=== PATIENT | female | born 1975 | race Caucasian/White ===

== ENCOUNTER 2016-12-21 11:43 | Inpatient (IN) | payer OTHER ==
[2016-12-21] MEDS ORDERED: SODIUM CHLORIDE 0.9% 1,000 ML IV ONE (12:21)
[2016-12-21] MEDS ORDERED: ONDANSETRON 4 MG/2 ML VIAL IVP STA (12:21)
[2016-12-21] MEDS ORDERED: KETOROLAC 30 MG/ML 1 ML VIAL IVP STA (12:21)
[2016-12-21] MEDS ORDERED: RX INFO: IV CONTRAST WAS GIVEN 1 EACH MISC MISCELLANE PRN (12:21)
[2016-12-21 12:59] LABS: Appearance,Urine Clear (Clear); Bilirubin,Urine Negative (Negative); Glucose,Urine (UA) Negative (Negative); Ketones,Urine 4+ (Negative); Leukocyte Esterase,Urine Negative (Negative); Mucus,Urine Rare /hpf; Nitrite,Urine Negative (Negative); PH, Urine 5.5 (5.0-8.0); Particle Count 4215; Protein,Urine 2+ (Negative); RBC,Urine 1 /hpf (0-5); Specific Gravity,Urine 1.023 (1.001-1.035); Squamous Epithelial Cell,Urine 3 /hpf (0-4); UA Billing (MACRO vs. MICRO) MICRO; Urobilinogen,Urine <2.0 mg/dL (<2.0); WBC,Urine <1 /hpf (0-5)
[2016-12-21 13:07] LABS: HCG,Qualitative Serum Not Detected
[2016-12-21 13:08] LABS: Basophils # (A) 0.1 k/uL (0-0.2); Basophils % (A) 0 %; CH 33.3; Eosinophils % (A) 0 %; HCT 40.7 % (34.0-46.0); HDW 3.66; HGB 15.5 gm/dL (11.4-16.0); Hyperchromasia Marked; Luc # (Auto) 0.07; Luc % (Auto) 0; Lymphocytes # (A) 0.7 k/uL (1.0-4.8); Lymphocytes % (A) 4 %; Mean Platelet Volume 6.9; Monocytes # (A) 0.5 k/uL (0-1.0); Monocytes % (A) 3 %; Neutrophils # (A) 15.1 k/uL (1.3-7.7); Neutrophils % (A) 92 %; Poikilocytosis Slight; RBC 4.85 m/uL (3.80-5.40); WBC 16.4 k/uL (3.8-10.6); WBC (Perox) 16.12
[2016-12-21 13:09] LABS: MCHC 38.1 g/dL (31.0-37.0)
[2016-12-21 13:11] LABS: ALT 26 U/L (9-52); AST 24 U/L (14-36); Alkaline Phosphatase 66 U/L (38-126); Anion Gap 18 mmol/L; Blood Urea Nitrogen 15 mg/dL (7-17); Calcium 9.6 mg/dL (8.4-10.2); Carbon Dioxide 22 mmol/L (22-30); Chloride 92 mmol/L (98-107); Glucose 122 mg/dL (74-99); Non-African American GFR(MDRD) >60 (>60 ml/min/1.73 sqM); Potassium 3.4 mmol/L (3.5-5.1); Sodium 132 mmol/L (137-145); Total Protein 7.9 g/dL (6.3-8.2)
[2016-12-21 13:19] LABS: Manual Review Performed
[2016-12-21 13:22] LABS: Spherocytes Present
--- NOTE | 2016-12-21 13:22 | CT ---
EXAMINATION TYPE: CT abdomen pelvis w con DATE OF EXAM: 12/21/2016 1:11 PM COMPARISON: NONE HISTORY: Nausea and vomiting CT DLP: 369.8 mGycm Automated exposure control for dose reduction was used. TECHNIQUE: Helical acquisition of images was performed from the lung bases through the pelvis. CONTRAST: Performed without Oral Contrast and with IV Contrast, patient injected with 100 mL of Omnipaque 300. FINDINGS: Lung bases are clear. There is no pleural effusion. Heart size is normal. Spleen is top normal in size. Liver appears normal. Bile ducts are not dilated. Gallbladder appears n ormal. There is no sign of pancreatic mass. The stomach is large and filled with fluid. There is no adrenal mass. Kidneys show satisfactory contrast opacification. There is no hydronephrosi s. There is no retroperitoneal adenopathy. There is no ascites. There is a 4 x 2 cm pleural-based cys t on the anterior right lower chest wall. I see no intestinal wall thickening. There are no dilated loops. There is no free fluid in the pelvis . There is no sign of a pelvic mass. Bladder is almost empty. Uterus is retroverted. Appendix is not seen. There is no sign of appendicitis. I see no bony destructive process. Lumbar spine is intact. IMPRESSION: THERE IS A THIN-WALLED PLEURAL-BASED CYST ON THE ANTERIOR LOWER RIGHT CHEST WALL OF UNCERTAIN SIGNIFI CANCE. THE STOMACH IS LARGE AND FULL OF FLUID that COULD RELATE TO GASTROPARESIS OR PARTIAL GASTRIC OUTLET O BSTRUCTION.
[2016-12-21] MEDS ORDERED: METOCLOPRAMIDE 5 MG/ML 2 ML VIAL IVP STA (15:07)
[2016-12-21] MEDS ORDERED: diphenhydrAMINE 50 MG/ML 1 ML VIAL IVP STA (15:07)
[2016-12-21] MEDS ORDERED: MORPHINE SULFATE 4 MG/ML SYRINGE IV PRN (15:08)
[2016-12-21] MEDS ORDERED: KETOROLAC 30 MG/ML 1 ML VIAL IVP PRN (15:08)
[2016-12-21] MEDS ORDERED: NALOXONE 0.4 MG/ML 1 ML VIAL IV PRN (15:08)
--- NOTE | 2016-12-21 15:11 | ED ---
General Adult HPI - General Chief complaint: Nausea/Vomiting/Diarrhea Stated complaint: vomiting Time Seen by Provider: 12/21/16 12:04 Source: patient Mode of arrival: wheelchair Limitations: no limitations - History of Present Illness Initial comments: 41-year-old female presenting for evaluation of nausea and vomiting since Thursday. She states this was not preceded by any other symptoms but has progressively developed a very umbilical abdominal pain during this time as well. There is no radiation of this pain she describes it as a cramping pressure. She has no other sick contacts in the home and has not taken any medications for improvement. There seems to be no exacerbating factors and she is unable to tolerate any by mouth intake. She does have a history of tubal ligation but admits she still has her gallbladder and her appendix. There is no associated dysuria or diarrhea. She denies any associated chest pain or shortness of breath. - Related Data Home Medications Medication Instructions Recorded Confirmed No Known Home Medications [No 12/21/16 12/21/16 Known Home Medications] Allergies Allergy/AdvReac Type Severity Reaction Status Date / Time acetaminophen Allergy Itching Verified 12/21/16 13:09 [From Tylenol-Codeine #3] codeine Allergy Itching Verified 12/21/16 13:09 [From Tylenol-Codeine #3] Review of Systems ROS Statement: Those systems with pertinent positive or pertinent negative responses have been documented in the HPI. ROS Other: All systems not noted in ROS Statement are negative. Constitutional: Reports: chills. Denies: fever, weakness, weight change Eyes: Denies: eye pain, eye discharge ENT: Denies: ear pain, throat pain, dental pain, hearing loss Respiratory: Denies: cough, dyspnea, wheezes, hemoptysis, stridor Cardiovascular: Denies: chest pain, palpitations, dyspnea on exertion, orthopnea , edema Endocrine: Reports: fatigue. Denies: polydipsia, polyuria Gastrointestinal: Reports: abdominal pain, nausea, vomiting. Denies: diarrhea, constipation, hematemesis, melena, hematochezia Genitourinary: Denies: urgency, dysuria, frequency, hematuria, discharge Musculoskeletal: Reports: myalgia. Denies: back pain Skin: Denies: rash, lesions Neurological: Denies: headache, weakness Psychiatric: Denies: anxiety, depression Hematological/Lymphatic: Denies: easy bleeding, easy bruising Past Medical History Past Medical History: No Reported History History of Any Multi-Drug Resistant Organisms: None Reported Past Surgical History: Tubal Ligation Past Psychological History: No Psychological Hx Reported Smoking Status: Current every day smoker Past Alcohol Use History: None Reported Past Drug Use History: None Reported - Past Family History Mother Family Medical History: Coronary Artery Disease (CAD), Thyroid Disorder General Exam Limitations: no limitations General appearance: alert, in distress Head exam: Present: atraumatic Eye exam: Present: normal appearance, PERRL, EOMI. Absent: scleral icterus, conjunctival injection, periorbital swelling ENT exam: Present: normal exam, mucous membranes moist Neck exam: Present: normal inspection. Absent: tenderness, meningismus, lymphadenopathy Respiratory exam: Present: normal lung sounds bilaterally. Absent: respiratory distress, wheezes, rales, rhonchi, stridor Cardiovascular Exam: Present: regular rate, normal rhythm, normal heart sounds. Absent: systolic murmur, diastolic murmur, rubs, gallop, clicks GI/Abdominal exam: Present: soft, tenderness. Absent: distended, guarding, rebound, rigid Rectal exam: Present: deferred Extremities exam: Present: normal inspection, full ROM, normal capillary refill. Absent: tenderness, pedal edema, joint swelling, calf tenderness Back exam: Present: normal inspection, full ROM Neurological exam: Present: alert, oriented X3, CN II-XII intact. Absent: altered Psychiatric exam: Present: normal affect, normal mood Skin exam: Present: warm, dry, intact, normal color. Absent: rash Course Vital Signs 12/21/16 12/21/16 12/21/16 11:47 14:49 15:49 Temperature 97.8 F 97.8 F 98.2 F Pulse Rate 67 60 Pulse Rate [ 60 Right Brachial] Respiratory 20 16 18 Rate Blood Pressure 112/65 109/60 Blood Pressure 107/62 [Right Arm] O2 Sat by Pulse 98 97 97 Oximetry EKG Findings - EKG Comments: EKG Findings:: Sinus bradycardia with sinus arrhythmia and a ventricular rate of 58, ROHIT 138, QRS 78, QT/QTc 452/443. Medical Decision Making - Medical Decision Making 41-year-old female presented for evaluation of intractable nausea vomiting and abdominal pain since Thursday. She states the nausea and vomiting started initially and that she developed the abdominal pain which is periumbilical without radiation. She states there is no hematemesis but her emesis has become greenish and bile colored in nature. She denies any dysuria and further denies any diarrhea. On physical examination she does appear distressed and has mild tenderness to palpation in the periumbilical area but only minimal. Concern for appendicitis versus cholecystitis versus bowel obstruction versus gastroenteritis. We'll obtain labs, CT abdomen, and provide pain control And Zofran. Labs revealed a leukocytosis of 16.4 and there are multiple electrolyte abnormalities. Total bilirubin was also elevated. Urinalysis revealed moderate blood and ketones without UTI.CT abdomen and pelvis shows a thin- walled pleural-based cyst on the anterior lower right chest wall of uncertain significance. The stomach is large and full of fluid that could relate to gastroparesis or partial gastric outlet obstruction. Patient was reevaluated and had some improvement in her pain but continued to have nausea and vomiting. She is informed of these results and through shared decision making it was decided that she would be admitted for further evaluation. Primary team was called and accepted the admission with request for GI consult. Admission order placed, but her cosmetic. - Lab Data Result diagrams: 12/21/16 12:37 12/21/16 12:37 Lab Results 12/21/16 12/21/16 12/21/16 Range/Units 12:37 12:37 12:37 WBC (3.8-10.6) k/uL RBC (3.80-5.40) m/uL Hgb (11.4-16.0) gm/dL Hct (34.0-46.0) % MCV (80.0-100.0) fL MCH (25.0-35.0) pg MCHC (31.0-37.0) g/dL RDW (11.5-15.5) % Plt Count (150-450) k/uL Neutrophils % % Lymphocytes % % Monocytes % % Eosinophils % % Basophils % % Neutrophils # (1.3-7.7) k/uL Lymphocytes # (1.0-4.8) k/uL Monocytes # (0-1.0) k/uL Eosinophils # (0-0.7) k/uL Basophils # (0-0.2) k/uL Manual Slide Review Hyperchromasia Poikilocytosis Spherocytes Sodium 132 L (137-145) mmol/L Potassium 3.4 L (3.5-5.1) mmol/L Chloride 92 L (98-107) mmol/L Carbon Dioxide 22 (22-30) mmol/L Anion Gap 18 mmol/L BUN 15 (7-17) mg/dL Creatinine 0.50 L (0.52-1.04) mg/dL Est GFR (MDRD) Af Amer >60 (>60 ml/min/1.73 sqM) Est GFR (MDRD) Non-Af >60 (>60 ml/min/1.73 sqM) Glucose 122 H (74-99) mg/dL Plasma Lactic Acid Roberto (0.7-2.0) mmol/L Calcium 9.6 (8.4-10.2) mg/dL Total Bilirubin 3.0 H (0.2-1.3) mg/dL AST 24 (14-36) U/L ALT 26 (9-52) U/L Alkaline Phosphatase 66 (38-126) U/L Troponin I <0.012 (0.000-0.034) ng/mL Total Protein 7.9 (6.3-8.2) g/dL Albumin 4.8 (3.5-5.0) g/dL Lipase 26 (23-300) U/L HCG, Qual Not Detected Urine Color Yellow Urine Appearance Clear (Clear) Urine pH 5.5 (5.0-8.0) Ur Specific [place] 1.023 (1.001-1.035) Urine Protein 2+ H (Negative) Urine Glucose (UA) Negative (Negative) Urine Ketones 4+ H (Negative) Urine Blood Moderate H (Negative) Urine Nitrite Negative (Negative) Urine Bilirubin Negative (Negative) Urine Urobilinogen <2.0 (<2.0) mg/dL Ur Leukocyte Esterase Negative (Negative) Urine RBC 1 (0-5) /hpf Urine WBC <1 (0-5) /hpf Ur Squamous Epith Cells 3 (0-4) /hpf Urine Mucus Rare H (None) /hpf 12/21/16 12/21/16 Range/Units 12:37 12:37 WBC 16.4 H (3.8-10.6) k/uL RBC 4.85 (3.80-5.40) m/uL Hgb 15.5 (11.4-16.0) gm/dL Hct 40.7 (34.0-46.0) % MCV 84.0 (80.0-100.0) fL MCH 32.0 (25.0-35.0) pg MCHC 38.1 H (31.0-37.0) g/dL RDW 15.0 (11.5-15.5) % Plt Count 229 (150-450) k/uL Neutrophils % 92 % Lymphocytes % 4 % Monocytes % 3 % Eosinophils % 0 % Basophils % 0 % Neutrophils # 15.1 H (1.3-7.7) k/uL Lymphocytes # 0.7 L (1.0-4.8) k/uL Monocytes # 0.5 (0-1.0) k/uL Eosinophils # 0.0 (0-0.7) k/uL Basophils # 0.1 (0-0.2) k/uL Manual Slide Review Performed Hyperchromasia Marked Poikilocytosis Slight Spherocytes Present Sodium (137-145) mmol/L Potassium (3.5-5.1) mmol/L Chloride (98-107) mmol/L Carbon Dioxide (22-30) mmol/L Anion Gap mmol/L BUN (7-17) mg/dL Creatinine (0.52-1.04) mg/dL Est GFR (MDRD) Af Amer (>60 ml/min/1.73 sqM) Est GFR (MDRD) Non-Af (>60 ml/min/1.73 sqM) Glucose (74-99) mg/dL Plasma Lactic Acid Roberto 1.4 (0.7-2.0) mmol/L Calcium (8.4-10.2) mg/dL Total Bilirubin (0.2-1.3) mg/dL AST (14-36) U/L ALT (9-52) U/L Alkaline Phosphatase (38-126) U/L Troponin I (0.000-0.034) ng/mL Total Protein (6.3-8.2) g/dL Albumin (3.5-5.0) g/dL Lipase (23-300) U/L HCG, Qual Urine Color Urine Appearance (Clear) Urine pH (5.0-8.0) Ur Specific [place] (1.001-1.035) Urine Protein (Negative) Urine Glucose (UA) (Negative) Urine Ketones (Negative) Urine Blood (Negative) Urine Nitrite (Negative) Urine Bilirubin (Negative) Urine Urobilinogen (<2.0) mg/dL Ur Leukocyte Esterase (Negative) Urine RBC (0-5) /hpf Urine WBC (0-5) /hpf Ur Squamous Epith Cells (0-4) /hpf Urine Mucus (None) /hpf Disposition Clinical Impression: Intractable nausea and vomiting, Abdominal pain, Leukocytosis Disposition: ADMITTED IP TO THIS HOSP Referrals: None,Stated [Primary Care Provider] - 1-2 days Decision to Admit Reason: Admit from EC Decision Date: 12/21/16 Decision Time: 15:11
--- NOTE | 2016-12-21 15:18 | US ---
EXAMINATION TYPE: US abdomen limited DATE OF EXAM: 12/21/2016 3:09 PM COMPARISON: CT in pacs CLINICAL HISTORY: Pain. N/V x 2 days EXAM MEASUREMENTS: Liver Length: 16.5 cm Gallbladder Wall: 0.2 cm CBD: 0.4 cm Right Kidney: 11.5 x 4.1 x 4.6 cm Pancreas: visualized portions wnl, limited by overlying midline bowel gas Liver: wnl Gallbladder: wnl Evidence for sonographic Hidalgo's sign: no CBD: visualized portions wnl, limited by overlying bowel gas Right Kidney: wnl Scanned RUQ area of concern seen on CT: 5.6 x 2.1 x 4.5cm cystic area anterior/superior to liver IMPRESSION: No gallstones or dilated ducts. Oval-shaped simple cystic fluid collection that measures 5.6 x 2.1 cm could be loculated pleural fluid. This is seen above the liver adjacent to the chest eneida arias
[2016-12-21] MEDS: SODIUM CHLORIDE 0.9% 1,000 ML IV SCH (15:54)
[2016-12-21 16:03] VITALS: BMI 21.4
[2016-12-21] MEDS: ONDANSETRON 4 MG/2 ML VIAL IVP PRN (20:18)
[2016-12-22] MEDS: SODIUM CHLORIDE 0.9% 1,000 ML IV SCH ×2 (03:37→20:14)
[2016-12-22] MEDS: ONDANSETRON 4 MG/2 ML VIAL IVP PRN (06:49)
[2016-12-22 07:24] LABS: Basophils % (A) 0 %; CHCM 38.6; Eosinophils % (A) 0 %; HCT 34.1 % (34.0-46.0); HDW 3.51; HGB 12.7 gm/dL (11.4-16.0); Hyperchromasia Moderate; Luc # (Auto) 0.13; Luc % (Auto) 2; Lymphocytes # (A) 1.8 k/uL (1.0-4.8); Lymphocytes % (A) 22 %; MCH 32.1 pg (25.0-35.0); MCHC 37.3 g/dL (31.0-37.0); Mean Platelet Volume 6.3; Monocytes # (A) 0.4 k/uL (0-1.0); Monocytes % (A) 6 %; Neutrophils # (A) 5.6 k/uL (1.3-7.7); Neutrophils % (A) 70 %; Poikilocytosis Slight; RBC 3.97 m/uL (3.80-5.40); RDW 15.2 % (11.5-15.5); WBC (Perox) 8.62
[2016-12-22 07:25] LABS: ALT 22 U/L (9-52); AST 18 U/L (14-36); Alkaline Phosphatase 42 U/L (38-126); Anion Gap 8 mmol/L; Blood Urea Nitrogen 10 mg/dL (7-17); Carbon Dioxide 25 mmol/L (22-30); Chloride 102 mmol/L (98-107); Glucose 79 mg/dL (74-99); Magnesium 2.1 mg/dL (1.6-2.3); Non-African American GFR(MDRD) >60 (>60 ml/min/1.73 sqM); Potassium 3.2 mmol/L (3.5-5.1); Sodium 135 mmol/L (137-145); Total Bilirubin 2.8 mg/dL (0.2-1.3); Total Protein 5.7 g/dL (6.3-8.2)
[2016-12-22] MEDS ORDERED: POTASSIUM PHOSPHATE 10 MMOL in SODIUM CHLORIDE 0.9% 250 ML IV ONE (12:34)
[2016-12-22] MEDS: FAMOTIDINE 20 MG TAB PO SCH ×2 (14:12→21:01)
--- NOTE | 2016-12-22 22:15 | HP ---
DATE OF ADMISSION: 12/21/2016 CHIEF COMPLAINT: Nausea and vomiting. Ms. Arrieta is a 41-year-old female with no significant past medical history, came to the hospital with complaints of nausea, vomiting since last Thursday. The patient also complaining of abdominal pain and she came to the hospital, mainly in the umbilical area. No complaints of abdominal pain now. More of cramping-like pain. No aggravating or alieving factors. Patient denied any unusual food intake. No recent illness or sick contacts at home Patient otherwise denied any complaints of dysuria or hematuria. No diarrhea as well. Denied any chest pain or short of breath. Patient is being treated symptomatically for nausea, vomiting and gastroenterology has been consulted for further evaluation. CT of the abdomen and pelvis showed thin-walled pleural-based cyst in the anterior lower right chest wall of uncertain significance. Ultrasound of the abdomen was ordered. Patient also having stomach large and full of fluid and could be related to gastroparesis or partial gastric outlet obstruction. Patient is being scheduled for an EGD tomorrow. REVIEW OF SYSTEMS: CONSTITUTIONAL: No fever. No chills. RESPIRATORY: No cough or shortness of breath. CARDIOVASCULAR: No chest pain or shortness of breath. ABDOMEN: Patient does have nausea, vomiting and no diarrhea. No constipation. GENITOURINARY: No dysuria. No hematuria. ENDOCRINE: Negative. PSYCHIATRY: Negative. SKIN: Negative. All other 14 point review of systems negative except as above. PAST MEDICAL HISTORY: History of E. coli infection in the past. Otherwise no history of hypertension or diabetes mellitus. PAST SURGICAL HISTORY: Tubal ligation. PSYCHOSOCIAL HISTORY: None. SOCIAL HISTORY: Currently an everyday smoker; smokes about 1/2 pack per day. Occasional marijuana use. Denied any drugs or IVDU. FAMILY HISTORY: Mother has coronary artery disease and thyroid disorder. ALLERGIES: TYLENOL NO. 3 AND CODEINE. No home medications. PHYSICAL EXAMINATION: A 41-year-old female, lying in the bed comfortably. Awake, alert, oriented, x3 appears to be in no apparent distress. VITALS: Blood pressure is 112/65, pulse is 67, respirations 20, temperature afebrile, pulse ox 98% on room air. HEENT: Atraumatic, normocephalic. Neck is supple. No JVD. CVS: S1, S2 heard. No murmurs, no gallop, no rub. LUNGS: Bilateral air entry is present. Decreased breath sounds basally, nonlabored breathing. ABDOMEN: Soft, nontender. Bowel sounds are present. No organomegaly. EXTREMITIES: No edema. Pulses palpable bilaterally. No clubbing or cyanosis. 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 No focal neurologic deficits. Cranial nerves grossly intact. PSYCHIATRIC: Cooperative. LABORATORY DATA: WBC 16.4, hemoglobin 15.5, platelets 229. Sodium 132, potassium 3.4, chloride 92, BUN 15, creatinine 0.5. Blood sugar is 122, lactic acid 1.4, phosphorus 2.0, bilirubin is 3.0. UA negative for infection. Ultrasound of the abdomen showed no gallstones or dilated ducts. Oval shaped simple cystic fluid collection that measures 5.6. X 2.1 cm could be loculated pleural fluid which is seen above the liver adjacent to the chest wall. IMPRESSION: 1. Nausea, vomiting, abdominal pain most likely possible gastroparesis and gastric outlet obstruction. The patient is being treated symptomatically and EGD tomorrow. Gastroenterology has seen the patient. 2. Leukocytosis most likely reactive. 3. Hypovolemic hyponatremia due to poor oral intake and nausea and vomiting. 4. Hypokalemia. 5. Hypomagnesemia. 6. Elevated bilirubin level but no ductal abnormality noted in the ultrasound. 7. History of cigarette smoking and marijuana use. DISCUSSION AND PLAN: Patient will be continued on pain management with morphine and continue with the Pepcid. Antiemetics. Follow up closely. Continue with IV fluids. Further recommendations based on clinical course. Patient is scheduled for EGD tomorrow.
[2016-12-23 06:48] LABS: Basophils % (A) 0 %; CH 32.9; CHCM 37.8; Eosinophils % (A) 1 %; HCT 33.3 % (34.0-46.0); HDW 3.45; HGB 12.2 gm/dL (11.4-16.0); Hyperchromasia Moderate; Luc # (Auto) 0.07; Luc % (Auto) 1; Lymphocytes # (A) 1.4 k/uL (1.0-4.8); Lymphocytes % (A) 28 %; MCH 32.1 pg (25.0-35.0); MCHC 36.7 g/dL (31.0-37.0); MCV 87.4 fL (80.0-100.0); Mean Platelet Volume 6.4; Monocytes # (A) 0.3 k/uL (0-1.0); Monocytes % (A) 5 %; Neutrophils # (A) 3.2 k/uL (1.3-7.7); Neutrophils % (A) 65 %; Poikilocytosis Slight; RBC 3.81 m/uL (3.80-5.40); RDW 15.3 % (11.5-15.5); WBC (Perox) 5.16
[2016-12-23] MEDS: ONDANSETRON 4 MG/2 ML VIAL IVP PRN ×2 (07:01→14:00)
[2016-12-23 07:05] LABS: ALT 23 U/L (9-52); AST 15 U/L (14-36); Alkaline Phosphatase 40 U/L (38-126); Anion Gap 6 mmol/L; Blood Urea Nitrogen 6 mg/dL (7-17); Calcium 7.5 mg/dL (8.4-10.2); Carbon Dioxide 25 mmol/L (22-30); Chloride 106 mmol/L (98-107); Glucose 78 mg/dL (74-99); Non-African American GFR(MDRD) >60 (>60 ml/min/1.73 sqM); Potassium 3.1 mmol/L (3.5-5.1); Sodium 137 mmol/L (137-145); Total Bilirubin 1.8 mg/dL (0.2-1.3); Total Protein 5.1 g/dL (6.3-8.2)
[2016-12-23] MEDS ORDERED: PROPOFOL 10 MG/ML 20 ML VIAL IV ONE (07:35)
[2016-12-23] MEDS ORDERED: IV FLUID CONTINUATION 1,000 ML IV ONE (07:35)
--- NOTE | 2016-12-23 07:45 | P.PCN ---
Date of Procedure: 12/23/16 Procedure(s) Performed: BRIEF HISTORY: Patient is a 41-year-old, pleasant, 8 female, scheduled for an upper endoscopy as a part of evaluation of severe intense nausea, vomiting and some coffee-ground emesis that started on Thursday night. She had at least 10-12 episodes each day. She was admitted to the hospital 2 days ago and since then her symptoms are gradually improving. She had a CT of the abdomen and pelvis done that showed distended stomach with food suspicious for gastroparesis versus gastric outlet obstruction. She is hence scheduled for an upper endoscopy to evaluate further. PROCEDURE PERFORMED: Esophagogastroduodenoscopy and biopsy. PREOPERATIVE DIAGNOSIS: Severe nausea, vomiting and coffee-ground emesis. IV sedation per anesthesia. PROCEDURE: After informed consent was obtained, the patient was brought into the endoscopy unit. IV conscious sedation was administered by Anesthesia under continuous monitoring. Initially the Olympus GIF-140 video endoscope was inserted into the mouth. Esophagus intubated without any difficulty. It was gradually advanced into the stomach and duodenum and carefully examined. The bulb and the second part of the duodenum appeared normal. The scope at this time was withdrawn to the stomach, adequately insufflated with air, and upon careful examination, mucosa of the antrum, had mild gastritis and biopsies were done from this area. The body, cardia and the fundus appeared normal. The scope was then withdrawn into the esophagus. The GE junction was located at 39 cm from the incisors. Linear erosions were noted in the distal esophagus consistent with LA grade B reflux esophagitis. The rest of the esophagus appeared normal and the patient tolerated the procedure well. IMPRESSION: 1. Mild antral gastritis. No evidence of peptic ulcer disease or gastric outlet obstruction. 2. Linear erosions in the distal esophagus consistent with LA grade B reflux esophagitis. RECOMMENDATIONS: The findings of this examination were discussed with the patient as well as a family. She'll be continued on Protonix 40 mg daily and diet will be advanced as tolerated. She was advised to follow with the biopsy results and follow up in office in 2 weeks
--- NOTE | 2016-12-23 08:35 | CONS ---
DATE OF CONSULTATION: 12/22/2016 REASON FOR CONSULTATION: Nausea, vomiting and coffee-ground emesis. HISTORY OF PRESENT ILLNESS: The patient is a 41-year-old white female admitted to the hospital because of multiple episodes of nausea, vomiting and coffee-ground emesis that started on Thursday ( ) She had at least 10 or 15 times each of these days and came into emergency room on Thursday and subsequently admitted to the hospital for further evaluation. She was complaining of some epigastric and periumbilical abdominal pain at the same time. Never had these symptoms in the past. She thinks she threw up coffee-ground emesis at least 10 times. She denies any recent NSAID use. No prior history of peptic ulcer disease. Prior to the onset of her symptoms, she was doing well. PAST MEDICAL HISTORY: None. PAST SURGICAL HISTORY: Tubal ligation. MEDICATIONS AT HOME. None. Allergies to TYLENOL NO. 3. SOCIAL HISTORY: No smoking or alcohol use. FAMILY HISTORY: Mother has coronary artery disease and hypothyroidism. REVIEW OF SYSTEMS: CARDIOPULMONARY: No chest pain or shortness of breath. GENITOURINARY: No dysuria or hematuria. MUSCULOSKELETAL: Unremarkable. SKIN: Unremarkable. ENDOCRINE: Unremarkable. PSYCHIATRIC: Unremarkable. NEUROLOGY: Unremarkable. ENT/VISION: Unremarkable. HEMATOLOGY: Unremarkable. PSYCHIATRY: Unremarkable. CONSTITUTIONAL: No recent weight loss. No fever or chills or night sweats. On physical examination, the patient appears comfortable, in no apparent distress. Vital signs are stable. Blood pressure is 97/49, pulse rate ( ), temperature 97.1. HEENT EXAMINATION: Unremarkable. Conjunctivae pink. Sclerae anicteric. Oral cavity, no lesions. NECK: No JVD or lymph node enlargement. Chest was clear to auscultation. HEART: Regular rate and rhythm. ABDOMEN: Soft. Bowel sounds are positive. No organomegaly. EXTREMITIES: No pedal edema. SKIN: No rashes. NEURO: She is alert and oriented x3. No focal deficits. LABS: WBC 16.4, hemoglobin 15.5, platelets are normal. Today, hemoglobin is 12.7. BUN is 15, creatinine 0.5. Basic metabolic panel is within normal limits. She had a CT of the abdomen and pelvis done in the emergency room that showed stomach is large, full of fluid and possibly gastroparesis versus partial gastric outlet obstruction ( ). IMPRESSION: Acute onset of severe nausea, vomiting and coffee-ground emesis for the last 3 days' duration. CAT scan of the abdomen showing distended stomach possibility of gastroparesis versus gastric outlet obstruction cannot be excluded on recent CAT scan. The patient since being in the hospital had no further episodes of nausea or vomiting. Patient is on a clear liquid diet, tolerating well. Hemoglobin stable at 15.5 g/dL. RECOMMENDATIONS: 1. Continue IV Protonix. 2. Continue with clear liquid diet. 3. Will proceed with an upper endoscopy tomorrow. Discussed with the patient risks, benefits and complications and she is agreeable to it. Thank you for this consultation.
[2016-12-23] MEDS: FAMOTIDINE 20 MG TAB PO SCH (09:38)
[2016-12-23] MEDS: SODIUM CHLORIDE 0.9% 1,000 ML IV SCH (09:38)
--- NOTE | 2016-12-23 09:41 | P.PN ---
Subjective Principal diagnosis: Nausea vomiting coffee-ground emesis Status post EGD yesterday for nausea vomiting coffee ground emesis. Findings mild antral gastritis with linear erosions in the distal esophagus consistent with LA grade B reflux esophagitis. No recurrence of coffee-ground emesis. Hemoglobin 12.2. Potassium 3.1. Objective - Vital Signs Vital signs: Vital Signs Temp 97.5 F L 12/23/16 08:05 Pulse 46 L 12/23/16 08:50 Resp 12 12/23/16 08:50 BP 160/88 12/23/16 08:50 Pulse Ox 99 12/23/16 08:50 Intake & Output 12/22/16 12/23/16 12/23/16 18:59 06:59 18:59 Intake Total 700 75 Output Total 50 1250 Balance -50 -550 75 Intake: IV 75 Oral 700 Output: Urine 50 1250 Other: Voiding Method Toilet Toilet Toilet # Voids 1 2 # Bowel Movements 1 - Exam General appearance: The patient is alert, oriented, in no acute distress. HET: Head is normocephalic and atraumatic. Pupils are equal and reactive. Oropharynx is clear without lesions. Neck: Supple without lymphadenopathy. Trachea midline. Heart: S1 S2. Regular rate and rhythm. Lungs: No crackles or wheezes are heard. Abdomen: Soft, very mild midepigastric tenderness, nondistended with bowel sounds. No peritoneal signs. No palpable organomegaly or masses. Extremities: Normal skin color and turgor. No cyanosis, rash, ulceration, clubbing, or edema. Radial and pedal pulses are 2/4 bilaterally. Neurological: No focal deficits. Strength and sensation are grossly intact. - Labs CBC & Chem 7: 12/23/16 06:32 12/23/16 06:32 Labs: Abnormal Lab Results - Last 24 Hours (Table) 12/23/16 12/23/16 Range/Units 06:32 06:32 Hct 33.3 L (34.0-46.0) % Potassium 3.1 L (3.5-5.1) mmol/L BUN 6 L (7-17) mg/dL Calcium 7.5 L (8.4-10.2) mg/dL Total Bilirubin 1.8 H (0.2-1.3) mg/dL Total Protein 5.1 L (6.3-8.2) g/dL Albumin 2.8 L (3.5-5.0) g/dL Assessment and Plan (1) Coffee ground emesis Narrative/Plan: Status post EGD with findings of antral gastritis and linear esophageal erosions consistent with LA grade B reflux esophagitis Status: Acute (2) Hypokalemia Status: Acute (3) Intractable nausea and vomiting Status: Acute Plan: 1. Protonix 40 mg daily. Soft diet as tolerated. 2. Return to GI office in 2 weeks. 3. Discharge per medicine. We'll follow as needed. Assessment and plan a care discussed with Dr. Muñoz.
[2016-12-23] MEDS ORDERED: PANTOPRAZOLE 40 MG TABLET PO SCH (09:45)
--- NOTE | 2016-12-23 13:22 | P.DS ---
Providers Date of admission: 12/21/16 15:08 Attending physician: Radha Delgadillo Primary care physician: Stated None Hospital Course: 41-year-old female is admitted to the hospital with intractable nausea vomiting. Patient was apparently noted to have some discolored emesis. Patient was admitted to the hospital was noted to have multiple electrolyte abnormalities as well. Patient's electro lites were current corrected. Patient underwent upper endoscopy done by gastroenterology and was noted to have some mild gastritis. On the day of discharge patient was able to tolerate diet. Physical exam Gen. appearance oriented 3 in no distress Neck is supple no JVD Lungs good air entry clear to auscultation no rhonchi or wheezing Heart S1-S2 heard regular rate and rhythm no murmurs appreciated Abdomen is soft nontender no organomegaly bowel sounds are intact Neurologically cranial nerves II-12 grossly intact no focal motor or sensory deficits noted Skin no abnormalities appreciated Discharge diagnoses #1 intractable nausea vomiting secondary to mild gastroenteritis #2 history of cleft palate cleft lip suspicion for underlying congenital disorder Plan patient is encouraged to ambulate if patient tolerates her meal is discharged home on Protonix is to follow-up with Dr. Saavedra. Plan - Discharge Summary New Discharge Prescriptions: Pantoprazole [Protonix] 40 mg PO DAILY #30 tablet. Discharge Medication List Pantoprazole [Protonix] 40 mg PO DAILY #30 tablet. 12/23/16 [Rx] Follow up Appointment(s)/Referral(s): Ella Muñoz MD [STAFF PHYSICIAN] - 2 Weeks None,Stated [Primary Care Provider] - 1-2 days Discharge Disposition: HOME SELF-CARE
[2016-12-23 17:39] VITALS: BP 134/85; PULSE 62; RESP 16; TEMP 97.6
== END 2016-12-23 18:40 | disposition home or self-care (01) | DRG 392 ==
LOC: EC 11:43 → 6PED 15:08
PROVIDERS: ADMIT Internal Medicine; ATTEND Internal Medicine
PROC: 0DB68ZX Excision of Stomach, Via Natural or Artificial Opening Endoscopic, Diagnostic (ICD-10-PCS; principal; 2016-12-23 07:00)
DX: K52.9 Noninfective gastroenteritis and colitis, unspecified (principal); K92.0 Hematemesis; E87.1 Hypo-osmolality and hyponatremia; E83.42 Hypomagnesemia; E87.6 Hypokalemia; K21.0 Gastro-esophageal reflux disease with esophagitis; K29.60 Other gastritis without bleeding; E86.1 Hypovolemia; D72.829 Elevated white blood cell count, unspecified; R00.1 Bradycardia, unspecified; R93.7 Abnormal findings on diagnostic imaging of other parts of musculoskeletal system; R79.89 Other specified abnormal findings of blood chemistry; F12.90 Cannabis use, unspecified, uncomplicated; F17.210 Nicotine dependence, cigarettes, uncomplicated; Z88.6 Allergy status to analgesic agent; Z88.5 Allergy status to narcotic agent; Z86.19 Personal history of other infectious and parasitic diseases; Z83.49 Family history of other endocrine, nutritional and metabolic diseases; Z82.49 Family history of ischemic heart disease and other diseases of the circulatory system; Z98.51 Tubal ligation status; Z87.730 Personal history of (corrected) cleft lip and palate
CPT/HCPCS: 36415; 43239; 74177; 76705; 80053; 81001; 83605; 83690; 83735; 84100; 84484; 84703; 85025; 88305; 88342; 93005; 96361; 96374; 96375; 96376; 99285

== ENCOUNTER 2017-05-08 15:31 | Emergency (ER) | payer OTHER ==
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
--- NOTE | 2017-05-08 16:31 | XR ---
Right ankle HISTORY: Trauma and pain 3 views of the right ankle Correlation to right foot same day Bone mineralization, joint spaces and alignment are maintained. Mild soft tissue swelling. IMPRESSION: No fracture or dislocation.
--- NOTE | 2017-05-08 16:32 | XR ---
Right leg HISTORY: Trauma and pain 2 views of the right leg correlated to right ankle same date Bone mineralization, joint spaces and alignment are maintained IMPRESSION: No fracture or dislocation.
[2017-05-08 16:56] VITALS: BP 123/80; PULSE 78; RESP 18; TEMP 98
== END 2017-05-08 16:53 | disposition home or self-care (01) ==
LOC: EC 15:31
DX: S93.401A Sprain of unspecified ligament of right ankle, initial encounter (principal); M79.672 Pain in left foot; F17.200 Nicotine dependence, unspecified, uncomplicated; Z88.5 Allergy status to narcotic agent; Z88.6 Allergy status to analgesic agent; V38.5XXA Driver of three-wheeled motor vehicle injured in noncollision transport accident in traffic accident, initial encounter; Y93.89 Activity, other specified; Y92.89 Other specified places as the place of occurrence of the external cause
CPT/HCPCS: 99283

== ENCOUNTER 2017-08-21 12:29 | Emergency (ER) | payer OTHER ==
[2017-08-21] MEDS ORDERED: ONDANSETRON 4 MG/2 ML VIAL IVP STA (13:45)
[2017-08-21] MEDS ORDERED: SODIUM CHLORIDE 0.9% 500 ML IV STA ×2 (13:45→15:10)
[2017-08-21] MEDS ORDERED: FAMOTIDINE 20 MG/2 ML VIAL IV STA (13:46)
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
[2017-08-21 14:12] LABS: Anisocytosis Slight; Basophils % (A) 0 %; CH 31.6; CHCM 37.8; Eosinophils # (A) 0.1 k/uL (0-0.7); Eosinophils % (A) 1 %; HCT 43.6 % (34.0-46.0); HDW 3.41; HGB 15.8 gm/dL (11.4-16.0); Hyperchromasia Moderate; Luc # (Auto) 0.05; Luc % (Auto) 0; Lymphocytes # (A) 0.9 k/uL (1.0-4.8); Lymphocytes % (A) 7 %; MCH 30.5 pg (25.0-35.0); MCHC 36.2 g/dL (31.0-37.0); MCV 84.1 fL (80.0-100.0); Mean Platelet Volume 6.7; Monocytes # (A) 0.6 k/uL (0-1.0); Monocytes % (A) 4 %; Neutrophils # (A) 11.4 k/uL (1.3-7.7); Neutrophils % (A) 87 %; Poikilocytosis Slight; RBC 5.19 m/uL (3.80-5.40); RDW 16.6 % (11.5-15.5); WBC 13.1 k/uL (3.8-10.6); WBC (Perox) 12.94
[2017-08-21 14:14] LABS: Appearance,Urine Clear (Clear); Bilirubin,Urine Negative (Negative); Glucose,Urine (UA) Negative (Negative); Ketones,Urine Negative (Negative); Leukocyte Esterase,Urine Negative (Negative); Mucus,Urine Rare /hpf; Nitrite,Urine Negative (Negative); PH, Urine 6.5 (5.0-8.0); Particle Count 1204; Protein,Urine Negative (Negative); RBC,Urine 2 /hpf (0-5); Specific Gravity,Urine 1.006 (1.001-1.035); UA Billing (MACRO vs. MICRO) MICRO; Urobilinogen,Urine <2.0 mg/dL (<2.0); WBC,Urine <1 /hpf (0-5)
[2017-08-21 14:22] LABS: ALT 37 U/L (9-52); AST 14 U/L (14-36); Alkaline Phosphatase 59 U/L (38-126); Anion Gap 9 mmol/L; Blood Urea Nitrogen 13 mg/dL (7-17); Calcium 8.8 mg/dL (8.4-10.2); Carbon Dioxide 23 mmol/L (22-30); Chloride 97 mmol/L (98-107); Glucose 122 mg/dL (74-99); Non-African American GFR(MDRD) >60 (>60 ml/min/1.73 sqM); Potassium 3.3 mmol/L (3.5-5.1); Sodium 129 mmol/L (137-145); Total Bilirubin 1.3 mg/dL (0.2-1.3); Total Protein 6.4 g/dL (6.3-8.2)
[2017-08-21] MEDS ORDERED: POTASSIUM CHLORIDE ER 20 MEQ TAB.ER PO STA (15:10)
[2017-08-21 15:15] VITALS: BP 117/59; PULSE 63; RESP 15; TEMP 97.9
== END 2017-08-21 15:34 | disposition home or self-care (01) ==
LOC: EC 12:29
DX: R11.2 Nausea with vomiting, unspecified (principal); F17.200 Nicotine dependence, unspecified, uncomplicated; Z88.5 Allergy status to narcotic agent; Z88.8 Allergy status to other drugs, medicaments and biological substances
CPT/HCPCS: 36415; 80053; 83690; 85025; 81001; 81025; 99284; 96374; 96375; J2405

== ENCOUNTER → 2018-04-27 | Outpatient (CLI) | payer OTHER ==
--- NOTE | 2018-04-27 18:03 | MR ---
EXAMINATION TYPE: MR tspine/lspine wo con DATE OF EXAM: 04/27/2018 COMPARISON: None HISTORY: Tspine pain, Low back pain CONTRAST: 0 mL intravenous Gadavist. TECHNIQUE: Multiplanar, multisequence images of the lumbar spine were acquired. FINDINGS: Cord terminates at the L1 level. L5-S1: There is central focal bulging with anterior thecal sac contact. No AP spinal canal stenosis i s present. Mild ligamentum flavum laxity is present. L4-L5: No significant disc bulge or disc herniation. No spinal canal stenosis. No foraminal stenosi s. Ligamentum flavum laxity has posterior lateral thecal sac compression.. L3-L4: No significant disc bulge or disc herniation. No spinal canal stenosis. No foraminal stenosi s. . L2-L3: No significant disc bulge or disc herniation. No spinal canal stenosis. No foraminal stenosi s. . L1-L2: No significant disc bulge or disc herniation. No spinal canal stenosis. No foraminal stenosi s. . IMPRESSION: 1. Mild disc bulging L4-5 with anterior thecal sac contact. 2. Mild focal bulging L5-S1 with anterior thecal sac contact. EXAMINATION TYPE: MR tspine/sim wo con DATE OF EXAM: 04/27/2018 COMPARISON: None HISTORY: Tspine pain, Low back pain CONTRAST: Performed utilizing 0 mL intravenous Gadavist gadolinium contrast. TECHNIQUE: Multiplanar, multiecho imaging on a 3.0 Jade magnet is performed through the thoracic spi ne. Spinal cord maintains normal signal through its visualized course. Vertebral body alignment is normal. Vertebral body heights are preserved. Disc heights are preserved. Disc hydration levels are preserved. T12-L1 has mild disc bulge slightly greater to the left paracentral region. No cord contact is eviden t. No spinal canal stenosis or neural foraminal stenosis is present. T10-T11: Mild disc bulges in the left and right paracentral regions with mild anterior thecal sac fla ttening. No AP spinal canal stenosis present. Neural foramen are patent. IMPRESSIONS: 1. Mild disc bulging T10-11 and T12-L1. No stenosis or cord contact is evident.
== END ==
LOC: RADMRIMAIN 12:58
PROVIDERS: ATTEND Nurse Practitioner Acute Care
DX: M51.26 Other intervertebral disc displacement, lumbar region (principal); M51.24 Other intervertebral disc displacement, thoracic region; Z88.5 Allergy status to narcotic agent
CPT/HCPCS: 72146; 72148

== ENCOUNTER → 2018-06-08 | Outpatient (CLI) | payer OTHER ==
--- NOTE | 2018-06-09 15:57 | NM ---
EXAMINATION TYPE: NM DatScan Brain SPECT DATE OF EXAM: 06/08/2018 COMPARISON: None HISTORY: Tremors TECHNIQUE: 10 drops of Lugol's solution was administered 1 hour prior to injection as a thyroid bloc deanna agent. After the administration of 3.91 mCi I-123 Ioflupane DaTscan. Images obtained 3 hours p ost injection. SPECT images of the brain were acquired with axial and coronal reconstructions. FINDINGS: Exam shows appropriate positioning. Normal comma-shaped radiopharmaceutical uptake is noted along the caudate and putamen. Uptake is symmetric. IMPRESSION: Normal ALPHONSO scan
== END | disposition home or self-care (01) ==
LOC: RADNMMAIN 10:49
PROVIDERS: ATTEND Psychiatry & Neurology Neurology
DX: G25.0 Essential tremor (principal); Z88.6 Allergy status to analgesic agent
CPT/HCPCS: 78607; A9584

== ENCOUNTER 2018-07-03 18:16 | Emergency (ER) | payer OTHER ==
[2018-07-03 18:28] VITALS: TEMP 98.1
[2018-07-03 20:05] VITALS: RESP 18
--- NOTE | 2018-07-03 20:33 | XR ---
EXAMINATION TYPE: XR chest 2V DATE OF EXAM: 07/03/2018 COMPARISON: NONE HISTORY: Shortness of breath. Upper respiratory infection. TECHNIQUE: Frontal and lateral views of the chest are obtained. FINDINGS: Copious soft tissues partially obscure the lower lungs on the frontal view, however no foca l consolidation on the lateral view is seen. There is no pulmonary vascular congestion, pleural effus ion, or pneumothorax seen. The cardiac silhouette size is within normal limits. The osseous struct ures are intact. IMPRESSION: No acute cardiopulmonary process.
[2018-07-03] MEDS ORDERED: IPRATROPIUM-ALBUTEROL 3 ML NEB INHALATION STA (20:37)
[2018-07-03] MEDS ORDERED: predniSONE 20 MG TAB PO STA (20:38)
--- NOTE | 2018-07-03 21:32 | ED ---
General Adult HPI - General Chief complaint: Upper Respiratory Infection Stated complaint: Congestion Time Seen by Provider: 07/03/18 19:58 Source: patient Mode of arrival: ambulatory Limitations: no limitations - History of Present Illness Initial comments: 42-year-old female with history of one pack per day smoking 20 years who presents today for chief complaint of phlegm cough congestion 2 weeks. Patient states she was diagnosed with an upper rest or infection on the . At that time she is also diagnosed with a UTI and given Bactrim. Her last dose of Bactrim was administered yesterday. Patient denies any urgency, frequency, hematuria or dysuria today. Patient states that her congestion seems to be worse she has noticed a mild wheeze and increased sputum production as well as a mild sore throat that increases with cough. Patient denies any hemoptysis, chest pain, dyspnea on exertion or shortness of breath. Patient states that she has not taken anything for symptoms at home. Patient denies fever, chills, night sweats, weight loss, chest pain, pain with deep inspiration, abdominal pain, nausea, vomiting, ear pain, difficulty breathing or swallowing, headache, neck stiffness. Remainder of ROS negative. - Related Data Previous Rx's Medication Instructions Recorded Ondansetron Odt [Zofran ODT] 4 mg PO Q8HR PRN #20 tab 08/21/17 Albuterol Inhaler [Ventolin Hfa 1 - 2 puff INHALATION RT-Q6H PRN 7 07/03/18 Inhaler] Days #1 inhaler Amoxicillin/Potassium Clav 1 tab PO Q12HR 7 Days #14 tab 07/03/18 [Augmentin 875-125 Tablet] Allergies Allergy/AdvReac Type Severity Reaction Status Date / Time acetaminophen Allergy Itching Verified 07/03/18 18:28 [From Tylenol-Codeine #3] codeine Allergy Itching Verified 07/03/18 18:28 [From Tylenol-Codeine #3] Review of Systems ROS Statement: Those systems with pertinent positive or pertinent negative responses have been documented in the HPI. ROS Other: All systems not noted in ROS Statement are negative. Constitutional: Denies: fever, chills, night sweats Eyes: Denies: eye pain ENT: Reports: throat pain. Denies: ear pain, hearing loss, epistaxis Respiratory: Reports: cough, wheezes (occasional, not currently). Denies: dyspnea, hemoptysis, stridor Cardiovascular: Denies: chest pain, palpitations, dyspnea on exertion, orthopnea , edema Endocrine: Denies: fatigue Gastrointestinal: Denies: abdominal pain, nausea, vomiting, diarrhea, constipation, hematemesis Genitourinary: Denies: urgency, dysuria, frequency, hematuria Musculoskeletal: Denies: back pain Skin: Denies: rash, lesions Neurological: Denies: headache, weakness, numbness, paresthesias, confusion Past Medical History Past Medical History: No Reported History History of Any Multi-Drug Resistant Organisms: None Reported Past Surgical History: Tubal Ligation Additional Past Surgical History / Comment(s): cleft lip repair Past Psychological History: No Psychological Hx Reported Smoking Status: Current every day smoker Past Alcohol Use History: None Reported Past Drug Use History: Marijuana - Past Family History Mother Family Medical History: Coronary Artery Disease (CAD), Thyroid Disorder General Exam - General Exam Comments Initial Comments: General: The patient is awake and alert, in no distress, and does not appear acutely ill. Eye: Pupils are equal, round and reactive to light, extra-ocular movements are intact. No nystagmus. There is normal conjunctiva bilaterally. No signs of icterus. Ears, nose, mouth and throat: There are moist mucous membranes and no oral lesions. Oropharynx is mildly erythematous, there is postnasal drip. No tonsillar enlargement or exudate. Uvula midline. No anterior cervical lymphadenopathy. Tympanic membranes within normal limits bilaterally. Mild tenderness to patient of the maxillary sinuses. Nasally voice. Neck: The neck is supple, there is no tenderness or JVD. Cardiovascular: There is a regular rate and rhythm. No murmur, rub or gallop is appreciated. Respiratory: Lungs are clear to auscultation, respirations are non-labored, breath sounds are equal. No wheeze, stridor, rales, or rhonchi. Gastrointestinal: Soft, non-distended, non-tender abdomen without masses or organomegaly noted. There is no rebound or guarding present. No CVA tenderness. Bowel sounds are unremarkable. Musculoskeletal: Normal ROM, no tenderness. Strength 5/5. Sensation intact. Radial pulses equal bilaterally 2+. (-) Homans, no pain along deep venous system of UE or LE. Neurological: A&O x 3. CN II-XII intact, There are no obvious motor or sensory deficits. Coordination appears grossly intact. Speech is normal. Skin: Skin is warm and dry and no rashes or lesions are noted. Psychiatric: Cooperative, appropriate mood & affect, normal judgment. Limitations: no limitations Course Vital Signs 07/03/18 07/03/18 07/03/18 18:26 20:03 20:53 Temperature 98.1 F Pulse Rate 95 92 Respiratory 20 18 Rate Blood Pressure 161/79 O2 Sat by Pulse 96 Oximetry 07/03/18 07/03/18 21:02 21:33 Temperature 98.1 F Pulse Rate 92 70 Respiratory 18 Rate Blood Pressure 124/85 O2 Sat by Pulse 99 Oximetry Medical Decision Making - Medical Decision Making Pt evaluated by myself as well as Dr. Lopes, [id number]. Pt stated she felt tight with deep inspiration on physical exam, denies chest pain- states the feeling is like a "chest cold". Lung sounds clear to auscultation. Pt given Duoneb she stated this helped. Physical exam significant for sinus pressure to palpation of the maxillary sinuses concerning for sinusitis. VS stable, pt afebrile. CXR (-) for acute cardiopulmonary process. At this time we feel pt has a sinusitis and viral URI with cough. Pt given one dose of 40mg prednisone and outside prescription of albuterol inhaler for wheezing PRN as well as Augmentin for sinusitis. In addition to the albuterol inhaler and Augmentin symptomatic treatment options were discussed. Return parameters were discussed with patient as well as the importance of follow-up with primary care provider one to 2 days. Patient verbalized understanding. Patient denies questions at this time. Patient was discharged in stable condition after case discussed in detail with Dr. Lopes. Disposition Clinical Impression: Sinusitis Disposition: HOME SELF-CARE Condition: Good Instructions: Sinusitis (ED) Additional Instructions: Please use medication as discussed. Please follow-up with family doctor in the next 2 days. Please return to emergency room if the symptoms increase or worsen or for any other concerns. Prescriptions: Albuterol Inhaler [Ventolin Hfa Inhaler] 1 - 2 puff INHALATION RT-Q6H PRN 7 Days #1 inhaler PRN Reason: Wheezing Amoxicillin/Potassium Clav [Augmentin 875-125 Tablet] 1 tab PO Q12HR 7 Days #14 tab Is patient prescribed a controlled substance at d/c from ED?: No Referrals: Zaira Encinas DO [Primary Care Provider] - 1-2 days Time of Disposition: 21:29
[2018-07-03 21:59] VITALS: BP 124/85; PULSE 70
== END 2018-07-03 21:33 | disposition home or self-care (01) ==
LOC: EC 18:16
DX: J32.9 Chronic sinusitis, unspecified (principal); F17.210 Nicotine dependence, cigarettes, uncomplicated; Z88.6 Allergy status to analgesic agent; Z88.5 Allergy status to narcotic agent
CPT/HCPCS: 94640; 71046; 99283; J7512

== ENCOUNTER 2018-12-13 12:18 | Emergency (ER) | payer OTHER ==
[2018-12-13 12:36] VITALS: TEMP 98
[2018-12-13] MEDS ORDERED: methylPREDNISolone SOD SUCCI 125 MG/2 ML VIAL IM ONE (13:21)
[2018-12-13] MEDS ORDERED: IPRATROPIUM-ALBUTEROL 3 ML NEB INHALATION STA (13:22)
[2018-12-13] MEDS ORDERED: KETOROLAC 60 MG/2 ML VIAL IM STA (13:22)
--- NOTE | 2018-12-13 14:05 | XR ---
EXAMINATION TYPE: XR chest 2V DATE OF EXAM: 12/13/2018 COMPARISON: 07/03/2018 HISTORY: Right-sided body ache, chest pain, and cough TECHNIQUE: Frontal and lateral views of the chest are obtained. FINDINGS: There is no focal air space opacity, pleural effusion, or pneumothorax seen. The cardiac silhouette size is within normal limits. The osseous structures are intact. IMPRESSION: No acute cardiopulmonary process.
--- NOTE | 2018-12-13 14:39 | ED ---
Back Pain HPI - General Chief Complaint: Back Pain/Injury Stated Complaint: rt sided pain Time Seen by Provider: 12/13/18 13:09 Source: patient, RN notes reviewed, old records reviewed Limitations: no limitations - History of Present Illness Initial Comments: [id number] female with recent URI symptoms presents emergency department today with complaints of right-sided rib pain. She reports she's been coughing significantly. Patient has had some right-sided rib and back pain since the onset of a cough. She finished antibiotics and steroids today. - Related Data Previous Rx's Medication Instructions Recorded Ondansetron Odt [Zofran ODT] 4 mg PO Q8HR PRN #20 tab 08/21/17 Albuterol Inhaler [Ventolin Hfa 1 - 2 puff INHALATION RT-Q6H PRN 7 07/03/18 Inhaler] Days #1 inhaler Amoxicillin/Potassium Clav 1 tab PO Q12HR 7 Days #14 tab 07/03/18 [Augmentin 875-125 Tablet] Albuterol Inhaler [Ventolin Hfa 1 - 2 puff INHALATION RT-Q6H PRN 12/13/18 Inhaler] #1 inhaler Cyclobenzaprine [Flexeril] 10 mg PO TID #20 tab 12/13/18 Doxycycline [Vibramycin] 100 mg PO BID 7 Days 12/13/18 Ibuprofen 600 mg PO TID #20 tablet 12/13/18 Promethazine/Dextromethorphan 5 ml PO TID #120 ml 12/13/18 [Phenergan DM Syrup] predniSONE 50 mg PO DAILY #7 tablet 12/13/18 Allergies Allergy/AdvReac Type Severity Reaction Status Date / Time No Known Allergies Allergy Verified 12/13/18 12:32 Review of Systems ROS Statement: Those systems with pertinent positive or pertinent negative responses have been documented in the HPI. ROS Other: All systems not noted in ROS Statement are negative. Past Medical History Past Medical History: No Reported History History of Any Multi-Drug Resistant Organisms: None Reported Past Surgical History: Tubal Ligation Additional Past Surgical History / Comment(s): cleft lip repair Past Psychological History: No Psychological Hx Reported Smoking Status: Current every day smoker Past Alcohol Use History: None Reported Past Drug Use History: Marijuana - Past Family History Mother Family Medical History: Coronary Artery Disease (CAD), Thyroid Disorder General Exam - General Exam Comments Initial Comments: 43-year-old female. Alert and oriented. No distress. Limitations: no limitations General appearance: alert, in no apparent distress Head exam: Present: atraumatic, normocephalic, normal inspection Eye exam: Present: normal appearance, PERRL, EOMI. Absent: scleral icterus, conjunctival injection, periorbital swelling ENT exam: Present: normal exam, mucous membranes moist Neck exam: Present: normal inspection. Absent: tenderness, meningismus, lymphadenopathy Respiratory exam: Present: normal lung sounds bilaterally, other (Right-sided rib pain). Absent: respiratory distress, wheezes, rales, rhonchi, stridor Cardiovascular Exam: Present: regular rate, normal rhythm, normal heart sounds. Absent: systolic murmur, diastolic murmur, rubs, gallop, clicks GI/Abdominal exam: Present: soft, normal bowel sounds. Absent: distended, tenderness, guarding, rebound, rigid Extremities exam: Present: normal inspection, full ROM, normal capillary refill. Absent: tenderness, pedal edema, joint swelling, calf tenderness Back exam: Present: normal inspection, muscle spasm Neurological exam: Present: alert, oriented X3, CN II-XII intact Psychiatric exam: Present: normal affect, normal mood Skin exam: Present: warm, dry, intact, normal color. Absent: rash Course Vital Signs 12/13/18 12/13/18 12/13/18 12:30 13:27 13:40 Temperature 98.0 F Pulse Rate 72 72 72 Respiratory 18 Rate Blood Pressure 96/59 O2 Sat by Pulse 98 Oximetry 12/13/18 14:56 Temperature Pulse Rate 58 L Respiratory 20 Rate Blood Pressure 126/78 O2 Sat by Pulse 97 Oximetry Medical Decision Making - Medical Decision Making 43-year-old presents emergency department today with right-sided rib pain after cough. Patient has had some tenderness of right-sided rib. Vital signs are stable. Chest x-ray is normal. Patient he's had some wheezing coughing. Was given DuoNeb treatment. Discussed treatment for steroids and cough syrup. - Radiology Data Radiology results: report reviewed Normal chest x-ray Disposition Clinical Impression: Cough, Rib pain on right side Disposition: HOME SELF-CARE Condition: Good Instructions (If sedation given, give patient instructions): Costochondritis (ED) Additional Instructions: Patient is to rest, increase fluid intake. Take the medications as prescribed. Using inhalers as necessary for cough and congestion. Patient should return to emergency department if any alarming signs or symptoms occur. Prescriptions: Cyclobenzaprine [Flexeril] 10 mg PO TID #20 tab Ibuprofen 600 mg PO TID #20 tablet Promethazine/Dextromethorphan [Phenergan DM Syrup] 5 ml PO TID #120 ml predniSONE 50 mg PO DAILY #7 tablet Albuterol Inhaler [Ventolin Hfa Inhaler] 1 - 2 puff INHALATION RT-Q6H PRN #1 inhaler PRN Reason: Shortness Of Breath Doxycycline [Vibramycin] 100 mg PO BID 7 Days Is patient prescribed a controlled substance at d/c from ED?: No Referrals: Zaira Encinas DO [Primary Care Provider] - 1-2 days Time of Disposition: 14:34
[2018-12-13 15:05] VITALS: BP 126/78; PULSE 58; RESP 20
== END 2018-12-13 14:56 | disposition home or self-care (01) ==
LOC: EC 12:18
DX: R07.81 Pleurodynia (principal); R05 Cough; M54.9 Dorsalgia, unspecified; F17.200 Nicotine dependence, unspecified, uncomplicated
CPT/HCPCS: 94640; 71046; 99284; 96372 ×2; J2930; J1885

== ENCOUNTER 2019-05-23 06:56 | Day surgery (SDC) | payer OTHER ==
[2019-05-18 14:38] VITALS: BMI 23.9
[~2019-05-23 06:56] MED LIST: LACTATED RINGERS 1,000 ML IV SCH; LIDOCAINE 1% 20 ML VIAL (10MG/ML) FOR IV START INTRADERMA PRN
[2019-05-23] MEDS ORDERED: LACTATED RINGERS 1,000 ML IV ONE (07:16)
[2019-05-23 07:19] VITALS: TEMP 97.6
[2019-05-23] MEDS ORDERED: PROPOFOL 10 MG/ML 20 ML VIAL IV ONE (07:36)
--- NOTE | 2019-05-23 07:53 | P.GSHP ---
History of Present Illness H&P Date: 05/23/19 Chief Complaint: Diarrhea This a 42-year-old female referred from Dr. Zaira Encinas. Patient had complaints of diarrhea. She presents today for colonoscopy. Past Medical History Past Medical History: COPD, GERD/Reflux Additional Past Medical History / Comment(s): Hx Arrythmia, Bradycardia. Essential Tremors. Hx bleeding ulcer. Diarrhea for past month. To Dr last week for congestion, URI sx, had steroid inj; Sx continue, instructed to call Dr for f/u. Venous malformation Lt Neck, hx tx as child. History of Any Multi-Drug Resistant Organisms: None Reported Past Surgical History: Tubal Ligation Additional Past Surgical History / Comment(s): Cleft lip repair. Colonoscopy. Past Anesthesia/Blood Transfusion Reactions: Family History of Problems w/ Anesthesia, Motion Sickness, Postoperative Nausea & Vomiting (PONV) Additional Past Anesthesia/Blood Transfusion Reaction / Comment(s): Mother has PONV also. Smoking Status: Current every day smoker - Past Family History Mother Family Medical History: Coronary Artery Disease (CAD), Thyroid Disorder Son(s) Family Medical History: Cancer Additional Family Medical History / Comment(s): Leukemia Medications and Allergies Home Medications Medication Instructions Recorded Confirmed Type Albuterol Inhaler [Ventolin Hfa 1 - 2 puff INHALATION RT-Q6H PRN 7 07/03/18 05/23/19 Rx Inhaler] Days #1 inhaler Dicyclomine [Bentyl] 10 mg PO TID 05/18/19 05/23/19 History Echinacea 750 mg PO DAILY PRN 05/18/19 05/23/19 History Fluticasone/Salmeterol 1 puff INHALATION BID 05/18/19 05/23/19 History [Fluticasone-Salmeterol 232-14] Ibuprofen 800 mg PO BID PRN 05/18/19 05/18/19 History Pantoprazole Sodium [Protonix] 40 mg PO AC-TID 05/18/19 05/23/19 History Pepto Diarrhea Tabs 1 tab PO DIRECTED PRN 05/18/19 05/23/19 History Propranolol [Inderal] 40 mg PO BID 05/18/19 05/23/19 History Umeclidinium [place] [Incruse 1 puff INHALATION DAILY 05/18/19 05/23/19 History Ellipta] Zonisamide [Zonegran] 200 mg PO HS 05/18/19 05/23/19 History Allergies Allergy/AdvReac Type Severity Reaction Status Date / Time No Known Allergies Allergy Verified 05/23/19 07:23 Surgical - Exam Vital Signs Temp Pulse Resp BP Pulse Ox 97.6 F 60 14 153/85 97 05/23/19 07:17 05/23/19 07:17 05/23/19 07:17 05/23/19 07:17 05/23/19 07:17 - General well developed, well nourished, no distress - Eyes PERRL - ENT normal pinna - Neck no masses - Respiratory normal expansion - Cardiovascular Rhythm: regular - Abdomen Abdomen: soft, non tender Assessment and Plan Assessment: Diarrhea. We'll perform colonoscopy.
--- NOTE | 2019-05-23 08:05 | P.OP ---
Date of Procedure: 05/23/19 Preoperative Diagnosis: Diarrhea Postoperative Diagnosis: Normal colonoscopy pathology pending Procedure(s) Performed: Colonoscopy Anesthesia: MAC Surgeon: Daniel Robbins Pathology: other (Sigmoid and rectal biopsy) Condition: stable Disposition: PACU Description of Procedure: The patient's placed on the endoscopy table in the lateral position. She received IV sedation. Digital rectal exam was performed which revealed no abnormalities. The flexible colonoscope was then placed patient anus passed t hroughout the entire colon. The ileocecal valve was visualized. Cecum, ascending and transverse colon appeared normal. The descending and sigmoid colon appeared normal. Due to the patient's symptoms of diarrhea a biopsy of the sigmoid colon rectal was performed. The rectum appeared normal. Scope was withdrawn from patient.
[2019-05-23 08:38] VITALS: BP 136/78; PULSE 52; RESP 18
== END 2019-05-23 08:38 | disposition home or self-care (01) ==
LOC: ORWHC2ENDO 06:56
PROVIDERS: ATTEND Surgery
DX: K52.9 Noninfective gastroenteritis and colitis, unspecified (principal); F17.200 Nicotine dependence, unspecified, uncomplicated; G25.0 Essential tremor; J44.9 Chronic obstructive pulmonary disease, unspecified; K21.9 Gastro-esophageal reflux disease without esophagitis; Z82.49 Family history of ischemic heart disease and other diseases of the circulatory system; Z79.1 Long term (current) use of non-steroidal anti-inflammatories (NSAID); Z79.899 Other long term (current) drug therapy; Z98.51 Tubal ligation status
CPT/HCPCS: 81025; 45380; J2704; 88305

== ENCOUNTER 2019-08-01 08:01 | Inpatient (IN) | payer OTHER ==
[2019-08-01] MEDS ORDERED: SODIUM CHLORIDE 0.9% 1,000 ML IV STA (08:18)
[2019-08-01] MEDS ORDERED: METOCLOPRAMIDE 5 MG/ML 2 ML VIAL IVP STA ×2 (08:18→15:22)
[2019-08-01] MEDS ORDERED: SODIUM CHLORIDE 0.9% 500 ML 500 ML IV STA (08:18)
[2019-08-01] MEDS ORDERED: MORPHINE SULFATE 4 MG/ML SYRINGE IV STA ×2 (08:18→10:34)
[2019-08-01] MEDS ORDERED: FAMOTIDINE 20 MG/2 ML VIAL IV STA (08:19)
--- NOTE | 2019-08-01 08:21 | ED ---
General Adult HPI - General Chief complaint: Abdominal Pain Stated complaint: vomiting, abd pain Time Seen by Provider: 08/01/19 08:14 Source: patient, RN notes reviewed Mode of arrival: ambulatory Limitations: no limitations - History of Present Illness Initial comments: Patient is a pleasant 43-year-old female presenting to the emergency Department with complaints of abdominal discomfort. Onset of symptoms was close to 2 days ago. Patient has been nauseated for the past week. Patient started vomiting 2 days ago and then started with some abdominal discomfort. Abdominal discomfort is left upper abdomen. Patient does feel dehydrated. No constipation or diarrhea. No urinary symptoms. No fevers. Patient did have similar symptoms a couple of years ago related to her stomach ulcer. - Related Data Home Medications Medication Instructions Recorded Confirmed Pantoprazole Sodium [Protonix] 40 mg PO DAILY PRN 05/18/19 08/01/19 Propranolol [Inderal] 40 mg PO BID 05/18/19 08/01/19 Umeclidinium [place] [Incruse 1 puff INHALATION RT-DAILY 05/18/19 08/01/19 Ellipta] Zonisamide [Zonegran] 200 mg PO HS 05/18/19 08/01/19 Allergies Allergy/AdvReac Type Severity Reaction Status Date / Time No Known Allergies Allergy Verified 08/01/19 08:27 Review of Systems ROS Statement: Those systems with pertinent positive or pertinent negative responses have been documented in the HPI. ROS Other: All systems not noted in ROS Statement are negative. Constitutional: Denies: fever Eyes: Denies: eye pain ENT: Denies: ear pain Respiratory: Denies: cough Cardiovascular: Denies: chest pain Endocrine: Denies: fatigue Gastrointestinal: Reports: as per HPI, abdominal pain, nausea, vomiting Genitourinary: Denies: dysuria Musculoskeletal: Denies: back pain Skin: Denies: rash Neurological: Denies: weakness Past Medical History Past Medical History: COPD, GERD/Reflux Additional Past Medical History / Comment(s): Hx Arrythmia, Bradycardia. Essential Tremors. Hx bleeding ulcer. Diarrhea for past month. To last week for congestion, URI sx, had steroid inj; Sx continue, instructed to call Dr for f/u. Venous malformation Lt Neck, hx tx as child. History of Any Multi-Drug Resistant Organisms: None Reported Past Surgical History: Tubal Ligation Additional Past Surgical History / Comment(s): Cleft lip repair. Colonoscopy. Past Anesthesia/Blood Transfusion Reactions: Family History of Problems w/ Anesthesia, Motion Sickness, Postoperative Nausea & Vomiting (PONV) Additional Past Anesthesia/Blood Transfusion Reaction / Comment(s): Mother has PONV also. Past Psychological History: No Psychological Hx Reported Smoking Status: Current every day smoker Past Alcohol Use History: None Reported Past Drug Use History: Marijuana - Past Family History Mother Family Medical History: Coronary Artery Disease (CAD), Thyroid Disorder Son(s) Family Medical History: Cancer Additional Family Medical History / Comment(s): Leukemia General Exam Limitations: no limitations General appearance: alert Head exam: Present: normocephalic Eye exam: Present: normal appearance, PERRL ENT exam: Present: mucous membranes dry Neck exam: Present: normal inspection Respiratory exam: Present: normal lung sounds bilaterally Cardiovascular Exam: Present: regular rate, normal rhythm Expanded Peripheral pulses: 2+: Dorsalis Pedis (R), Dorsalis Pedis (L) GI/Abdominal exam: Present: soft, tenderness (Moderate epigastric tenderness), normal bowel sounds. Absent: distended, guarding, rebound, rigid, pulsatile mass Extremities exam: Present: normal inspection. Absent: pedal edema, calf tenderness Neurological exam: Present: alert Psychiatric exam: Present: normal affect, normal mood Skin exam: Present: normal color Course Vital Signs 08/01/19 08/01/19 08/01/19 08:04 08:39 09:54 Temperature 97.6 F Pulse Rate 65 50 L 50 L Respiratory 19 16 16 Rate Blood Pressure 161/101 122/86 122/86 O2 Sat by Pulse 98 98 98 Oximetry EKG Findings - EKG Comments: EKG Findings:: Sinus bradycardia 48. MA 138. QRS 84. QT 466. QTc 416. Normal axis. Normal QRS. Nonspecific T waves. Medical Decision Making - Medical Decision Making Patient reevaluated and still with continued symptoms. Patient states they started to improve and then have returned. Patient is still nauseated as well has discomfort. Patient is not tolerating oral intake right now. Patient has hypokalemia. Case was discussed in detail with Dr. Morillo, who will admit covering for [facility]. - Lab Data Result diagrams: 08/01/19 08:25 08/01/19 08:25 Lab Results 08/01/19 08/01/19 08/01/19 Range/Units 08:25 08:25 08:25 WBC 14.5 H (3.8-10.6) k/uL RBC 4.79 (3.80-5.40) m/uL Hgb 15.8 (11.4-16.0) gm/dL Hct 43.0 (34.0-46.0) % MCV 89.8 (80.0-100.0) fL MCH 33.1 (25.0-35.0) pg MCHC 36.8 (31.0-37.0) g/dL RDW 14.7 (11.5-15.5) % Plt Count 273 (150-450) k/uL Neutrophils % 88 % Lymphocytes % 6 % Monocytes % 4 % Eosinophils % 0 % Basophils % 1 % Neutrophils # 12.8 H (1.3-7.7) k/uL Lymphocytes # 0.9 L (1.0-4.8) k/uL Monocytes # 0.6 (0-1.0) k/uL Eosinophils # 0.0 (0-0.7) k/uL Basophils # 0.1 (0-0.2) k/uL Hyperchromasia Moderate Poikilocytosis Slight PT 10.1 (9.0-12.0) sec INR 0.9 (<1.2) APTT 21.2 L (22.0-30.0) sec Sodium 130 L (137-145) mmol/L Potassium 2.7 L* (3.5-5.1) mmol/L Chloride 95 L (98-107) mmol/L Carbon Dioxide 18 L (22-30) mmol/L Anion Gap 17 mmol/L BUN 9 (7-17) mg/dL Creatinine 0.59 (0.52-1.04) mg/dL Est GFR (CKD-EPI)AfAm >90 (>60 ml/min/1.73 sqM) Est GFR (CKD-EPI)NonAf >90 (>60 ml/min/1.73 sqM) Glucose 152 H (74-99) mg/dL Calcium 9.2 (8.4-10.2) mg/dL Total Bilirubin 2.6 H (0.2-1.3) mg/dL AST 20 (14-36) U/L ALT 21 (9-52) U/L Alkaline Phosphatase 66 (38-126) U/L Troponin I (0.000-0.034) ng/mL Total Protein 7.7 (6.3-8.2) g/dL Albumin 4.5 (3.5-5.0) g/dL Amylase 58 (30-110) U/L Lipase 29 (23-300) U/L HCG, Quant <2.4 mIU/mL Urine Color Urine Appearance (Clear) Urine pH (5.0-8.0) Ur Specific [place] (1.001-1.035) Urine Protein (Negative) Urine Glucose (UA) (Negative) Urine Ketones (Negative) Urine Blood (Negative) Urine Nitrite (Negative) Urine Bilirubin (Negative) Urine Urobilinogen (<2.0) mg/dL Ur Leukocyte Esterase (Negative) Urine RBC (0-5) /hpf Urine WBC (0-5) /hpf Ur Squamous Epith Cells (0-4) /hpf Urine Bacteria (None) /hpf Hyaline Casts (0-2) /lpf Urine Mucus (None) /hpf 08/01/19 08/01/19 Range/Units 08:25 08:25 WBC (3.8-10.6) k/uL RBC (3.80-5.40) m/uL Hgb (11.4-16.0) gm/dL Hct (34.0-46.0) % MCV (80.0-100.0) fL MCH (25.0-35.0) pg MCHC (31.0-37.0) g/dL RDW (11.5-15.5) % Plt Count (150-450) k/uL Neutrophils % % Lymphocytes % % Monocytes % % Eosinophils % % Basophils % % Neutrophils # (1.3-7.7) k/uL Lymphocytes # (1.0-4.8) k/uL Monocytes # (0-1.0) k/uL Eosinophils # (0-0.7) k/uL Basophils # (0-0.2) k/uL Hyperchromasia Poikilocytosis PT (9.0-12.0) sec INR (<1.2) APTT (22.0-30.0) sec Sodium (137-145) mmol/L Potassium (3.5-5.1) mmol/L Chloride (98-107) mmol/L Carbon Dioxide (22-30) mmol/L Anion Gap mmol/L BUN (7-17) mg/dL Creatinine (0.52-1.04) mg/dL Est GFR (CKD-EPI)AfAm (>60 ml/min/1.73 sqM) Est GFR (CKD-EPI)NonAf (>60 ml/min/1.73 sqM) Glucose (74-99) mg/dL Calcium (8.4-10.2) mg/dL Total Bilirubin (0.2-1.3) mg/dL AST (14-36) U/L ALT (9-52) U/L Alkaline Phosphatase (38-126) U/L Troponin I <0.012 (0.000-0.034) ng/mL Total Protein (6.3-8.2) g/dL Albumin (3.5-5.0) g/dL Amylase (30-110) U/L Lipase (23-300) U/L HCG, Quant mIU/mL Urine Color Yellow Urine Appearance Clear (Clear) Urine pH 6.0 (5.0-8.0) Ur Specific [place] 1.013 (1.001-1.035) Urine Protein 1+ H (Negative) Urine Glucose (UA) Negative (Negative) Urine Ketones 4+ H (Negative) Urine Blood Trace H (Negative) Urine Nitrite Negative (Negative) Urine Bilirubin Negative (Negative) Urine Urobilinogen <2.0 (<2.0) mg/dL Ur Leukocyte Esterase Negative (Negative) Urine RBC <1 (0-5) /hpf Urine WBC 4 (0-5) /hpf Ur Squamous Epith Cells 6 H (0-4) /hpf Urine Bacteria Rare H (None) /hpf Hyaline Casts 6 H (0-2) /lpf Urine Mucus Few H (None) /hpf - Radiology Data Radiology results: report reviewed (Computed tomography scan of the abdomen pelvis shows no acute inflammatory process. Stable soft tissue nodularity. Stable possible. Cardiac cyst.) Disposition Clinical Impression: Hypokalemia, Intractable nausea and vomiting, Abdominal pain Disposition: ADMITTED IP TO THIS HOSP Is patient prescribed a controlled substance at d/c from ED?: No Referrals: Zaira Encinas DO [Primary Care Provider] - 1-2 days Decision Time: 10:43
[2019-08-01 09:28] LABS: Appearance,Urine Clear (Clear); Bacteria,Urine Rare /hpf; Bilirubin,Urine Negative (Negative); Blood,Urine Trace (Negative); Color,Urine Yellow; Glucose,Urine (UA) Negative (Negative); Hyaline Casts,Urine 6 /lpf (0-2); Ketones,Urine 4+ (Negative); Leukocyte Esterase,Urine Negative (Negative); Mucus,Urine Few /hpf; Nitrite,Urine Negative (Negative); Protein,Urine 1+ (Negative); RBC,Urine <1 /hpf (0-5); Specific Gravity,Urine 1.013 (1.001-1.035); Squamous Epithelial Cell,Urine 6 /hpf (0-4); Urobilinogen,Urine <2.0 mg/dL (<2.0); WBC,Urine 4 /hpf (0-5)
--- NOTE | 2019-08-01 09:29 | CT ---
EXAMINATION TYPE: CT abdomen pelvis w con DATE OF EXAM: 08/01/2019 COMPARISON: 12/21/2016 HISTORY: 43-year-old female with abdominal pain, nausea and vomiting TECHNIQUE: Contiguous axial scanning of the abdomen and pelvis following administration of 100 ml Iso alex 300 IV contrast. Delayed images through the kidneys and coronal/sagittal reconstructions perform ed. CT DLP: 694.4 mGycm Automated exposure control for dose reduction was used. FINDINGS: Heart normal size without pericardial effusion. Redemonstrated cystic lesion along the anterior right base measuring 4.3 cm processes 3.9 cm and 2017. Lung bases otherwise clear without pleural effusion . Extensive nodularity along the skin and subcutaneous tissues along the lateral lower left thorax can be correlated clinically as to etiology. Small amount of focal fat along the anterior falciform ligament. Otherwise, no focal liver lesion or biliary ductal dilatation. Portal venous system is patent. Gallbladder, adrenal glands, left kidney, and pancreas show no gross abnormality. 4 mm nonobstructive right renal calculus. Tiny subcentimeter hypodensity posterior aspect of the spleen is unchanged from 2017 suggesting a johnnie ign etiology such as a tiny cyst. No dilated small bowel, free fluid, or free air. Tiny fatty myocardium. Normal appendix. No significant stool burden. No pericolonic inflammatory change. Bladder not distended. Numerous pelvic phleboliths. Uterus is retroverted. Both ovaries are visualize d. There may be trace right adnexal free fluid likely physiologic. No pelvic lymphadenopathy. Bones: Mild bulging disc at L3-L4. No osseous destructive process. IMPRESSION: 1. NO ACUTE INFLAMMATORY PROCESS IDENTIFIED IN THE ABDOMEN OR PELVIS TO EXPLAIN THE PATIENT'S SYMPTOM S. 2. 4 MM NONOBSTRUCTIVE RIGHT RENAL CALCULUS. TRACE RIGHT ADNEXAL FREE FLUID LIKELY PHYSIOLOGIC. 3. A 4.3 CM CYST ALONG THE ANTERIOR BASILAR RIGHT MIDDLE LOBE MAY REPRESENT A PERICARDIAC CYST OR OTH ER CONGENITAL CYST. RELATIVELY STABLE IN SIZE FROM 2017 WHERE IT MEASURED 3.9 CM. 4. STABLE EXTENSIVE SOFT TISSUE NODULARITY INVOLVING THE SKIN AND SUBCUTANEOUS TISSUES ALONG THE LEFT LATERAL LOWER CHEST WALL. CORRELATE WITH PHYSICAL EXAM FINDINGS AND ANY KNOWN DIAGNOSIS.
[2019-08-01 09:40] LABS: Basophils # (A) 0.1 k/uL (0-0.2); Basophils % (A) 1 %; Eosinophils % (A) 0 %; HGB 15.8 gm/dL (11.4-16.0); Hyperchromasia Moderate; Lymphocytes # (A) 0.9 k/uL (1.0-4.8); Lymphocytes % (A) 6 %; MCH 33.1 pg (25.0-35.0); MCHC 36.8 g/dL (31.0-37.0); MCV 89.8 fL (80.0-100.0); Mean Platelet Volume 6.6; Monocytes # (A) 0.6 k/uL (0-1.0); Monocytes % (A) 4 %; Neutrophils # (A) 12.8 k/uL (1.3-7.7); Neutrophils % (A) 88 %; Platelet Count 273 k/uL (150-450); Poikilocytosis Slight; RBC 4.79 m/uL (3.80-5.40); RDW 14.7 % (11.5-15.5); WBC 14.5 k/uL (3.8-10.6)
[2019-08-01 09:45] LABS: INR 0.9 (<1.2); Prothrombin Time 10.1 sec (9.0-12.0)
[2019-08-01 09:49] LABS: Partial Thromboplastin Time 21.2 sec (22.0-30.0)
[2019-08-01 09:52] LABS: ALT 21 U/L (9-52); AST 20 U/L (14-36); African American GFR (CKD) >90 (>60 ml/min/1.73 sqM); Albumin 4.5 g/dL (3.5-5.0); Alkaline Phosphatase 66 U/L (38-126); Amylase 58 U/L (30-110); Anion Gap 17 mmol/L; Blood Urea Nitrogen 9 mg/dL (7-17); Calcium 9.2 mg/dL (8.4-10.2); Carbon Dioxide 18 mmol/L (22-30); Chloride 95 mmol/L (98-107); Glucose 152 mg/dL (74-99); Sodium 130 mmol/L (137-145); Total Bilirubin 2.6 mg/dL (0.2-1.3); Total Protein 7.7 g/dL (6.3-8.2)
[2019-08-01 09:55] LABS: Potassium 2.7 mmol/L (3.5-5.1)
[2019-08-01 09:57] LABS: HCG,Quantitative Serum <2.4 mIU/mL
[2019-08-01] MEDS ORDERED: POTASSIUM CHLORIDE 2 MEQ/ML 20 ML VIAL IVPB STA (10:33)
[2019-08-01] MEDS ORDERED: ONDANSETRON 4 MG/2 ML VIAL IVP STA (10:34)
[2019-08-01] MEDS ORDERED: MORPHINE SULFATE 4 MG/ML SYRINGE IV PRN (10:43)
[2019-08-01] MEDS ORDERED: NALOXONE 0.4 MG/ML 1 ML VIAL IV PRN (10:43)
[2019-08-01] MEDS: POTASSIUM CHLORIDE 10 MEQ in WATER FOR INJECTION 1 100ML.BAG IVPB SCH ×4 (11:23→15:02)
[2019-08-01] MEDS: PANTOPRAZOLE 40 MG/10 ML VIAL IV SCH (12:24)
[2019-08-01] MEDS: 0.9% NACL WITH KCL 20 MEQ/L 1,000 ML IV SCH ×2 (12:29→22:11)
[2019-08-01] MEDS: ONDANSETRON 4 MG/2 ML VIAL IVP PRN (20:14)
[2019-08-02] MEDS: PROMETHAZINE INJ 12.5 MG in SODIUM CHLORIDE 0.9% 50 ML IVPB PRN ×2 (00:26→12:49)
[2019-08-02] MEDS: PANTOPRAZOLE 40 MG/10 ML VIAL IV SCH (09:15)
[2019-08-02] MEDS: PROPRANOLOL 40 MG TAB PO SCH ×2 (09:27→22:06)
[2019-08-02 09:44] LABS: ALT 19 U/L (9-52); AST 17 U/L (14-36); African American GFR (CKD) >90 (>60 ml/min/1.73 sqM); Alkaline Phosphatase 55 U/L (38-126); Anion Gap 10 mmol/L; Blood Urea Nitrogen 3 mg/dL (7-17); Calcium 8.9 mg/dL (8.4-10.2); Carbon Dioxide 25 mmol/L (22-30); Chloride 98 mmol/L (98-107); Glucose 94 mg/dL (74-99); Potassium 3.6 mmol/L (3.5-5.1); Sodium 133 mmol/L (137-145); Total Bilirubin 2.2 mg/dL (0.2-1.3); Total Protein 6.6 g/dL (6.3-8.2)
[2019-08-02 10:56] LABS: HCT 39.6 % (34.0-46.0); HGB 14.7 gm/dL (11.4-16.0); Hyperchromasia Moderate; MCH 33.7 pg (25.0-35.0); MCHC 37.2 g/dL (31.0-37.0); MCV 90.5 fL (80.0-100.0); Mean Platelet Volume 5.7; Platelet Count 172 k/uL (150-450); Poikilocytosis Slight; RBC 4.38 m/uL (3.80-5.40); RDW 14.7 % (11.5-15.5)
[2019-08-02 11:40] LABS: Neutrophils % (M) 74 %; Nucleated Red Blood Cells 0 /100 WBC (0-0); Total Cells Counted 100
[2019-08-02 11:41] LABS: Anisocytosis (M) Present
--- NOTE | 2019-08-02 12:41 | XR ---
EXAMINATION TYPE: XR chest 1V portable DATE OF EXAM: 08/02/2019 CLINICAL HISTORY: Posterior chest pain and cough. TECHNIQUE: Single AP portable upright view of the chest is obtained. COMPARISON: Chest x-ray from December 13, 2018. CT abdomen and pelvis from yesterday. FINDINGS: Persistent oval right basilar opacity corresponds to anterior low dense lesion on CT above the diaphragm. No new focal airspace opacity, pleural effusion, or pneumothorax. Cardiac silhouette size remains within normal limits. Osseous structures are intact. IMPRESSION: No acute pulmonary process is evident.
[2019-08-02 13:32] VITALS: BMI 22.3
[2019-08-02] MEDS: ZONISAMIDE 100 MG CAP PO SCH (22:00)
[2019-08-02] MEDS: 0.9% NACL WITH KCL 20 MEQ/L 1,000 ML IV SCH ×2 (22:06→22:56)
--- NOTE | 2019-08-02 23:16 | P.HPIM ---
History of Present Illness H&P Date: 08/02/19 Chief Complaint: nausea, vomiting Sobeida Arrieta is a 43 yo F who presents to the ED complaining of 2 day history of nausea and vomiting. She states that she has felt run down in general with poor appetite and multiple episodes of vomiting. she denies alcohol but does smoke cannabis daily. In the ED she did have leukocytosis and hypokalemia, and persisted to complain of nausea and vomiting despite zofran x2. She is admitted for further management of her nausea and vomiting. Review of Systems All systems: negative Constitutional: Denies chills, Denies fever Eyes: denies blurred vision, denies pain Ears, nose, mouth and throat: Denies headache, Denies sore throat Cardiovascular: Denies chest pain, Denies shortness of breath Respiratory: Denies cough Gastrointestinal: Reports as per HPI, Reports loss of appetite, Reports nausea, Reports vomiting, Denies abdominal pain, Denies diarrhea Genitourinary: Denies dysuria, Denies hematuria Musculoskeletal: Denies myalgias Integumentary: Denies pruritus, Denies rash Neurological: Denies numbness, Denies weakness Psychiatric: Denies anxiety, Denies depression Endocrine: Denies fatigue, Denies weight change Past Medical History Past Medical History: COPD, GERD/Reflux, GI Bleed, Pneumonia, Vascular Disorder Additional Past Medical History / Comment(s): Recent colitis, lower GI bleed, occasional diarrhea, pt having gallbladder work up and has HIDA scan scheduled for 08/08/19, bronchitis, L back venous malformation, essential tremors, irregular heart beat/bradycardia, UTIs History of Any Multi-Drug Resistant Organisms: None Reported Past Surgical History: Tubal Ligation Additional Past Surgical History / Comment(s): 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 Past Anesthesia/Blood Transfusion Reactions: Family History of Problems w/ Anesthesia, Motion Sickness, Postoperative Nausea & Vomiting (PONV) Additional Past Anesthesia/Blood Transfusion Reaction / Comment(s): Mother has PONV also. Smoking Status: Current every day smoker - Past Family History Mother Family Medical History: Coronary Artery Disease (CAD), Thyroid Disorder Additional Family Medical History / Comment(s): Irregular heart beat. Son(s) Family Medical History: Cancer Additional Family Medical History / Comment(s): Leukemia in remission Father Family Medical History: Coronary Artery Disease (CAD), Musculoskeletal Disorder, Neurologic Disorder Additional Family Medical History / Comment(s): Father had parkinson's. He is . Medications and Allergies Home Medications Medication Instructions Recorded Confirmed Type Pantoprazole Sodium [Protonix] 40 mg PO DAILY PRN 05/18/19 08/01/19 History Propranolol [Inderal] 40 mg PO BID 05/18/19 08/01/19 History Umeclidinium [place] [Incruse 1 puff INHALATION RT-DAILY 05/18/19 08/01/19 History Ellipta] Zonisamide [Zonegran] 200 mg PO HS 05/18/19 08/01/19 History Ondansetron HCl [Zofran] 8 mg PO TID PRN #20 tablet 08/02/19 Rx Allergies Allergy/AdvReac Type Severity Reaction Status Date / Time No Known Allergies Allergy Verified 08/01/19 08:27 Physical Exam Vitals: Vital Signs Temp Pulse Resp BP Pulse Ox 08/02/19 22:00 54 L 08/02/19 21:54 98.4 F 54 L 18 127/68 97 08/02/19 20:09 98.2 F 64 20 101/65 97 08/02/19 15:49 98.7 F 53 L 18 120/71 95 08/02/19 12:54 98.5 F 08/02/19 11:38 101.0 F H 57 L 18 157/89 97 08/02/19 08:33 97.9 F 65 16 167/99 98 08/02/19 00:20 97.9 F 65 16 158/74 98 Intake and Output 08/02/19 08/02/19 08/03/19 14:59 22:59 06:59 Intake Total 120 Output Total 200 Balance -80 Intake: Oral 120 Output: Urine 200 Other: Voiding Method Toilet Toilet # Voids 200 1 Weight 58.967 kg General: well nourished, well developed, NAD. Vitals reviewed Eyes: PERRL, EOMI, conjunctiva normal HENT: normocephalic, mucus membranes moist Neck: supple, no JVD Lungs: normal respiratory effort, no wheezes or rales CV: Regular rate and rhythm, no murmur. Peripheral pulses 2+ Abdomen: soft, nondistended, no organomegaly Lymph: no cervical or axillary LAD Skin: warm and dry. Results CBC & Chem 7: 08/02/19 09:20 08/02/19 09:20 Labs: Abnormal Lab Results - Last 24 Hours (Table) 08/02/19 08/02/19 Range/Units 09:20 09:20 MCHC 37.2 H (31.0-37.0) g/dL Sodium 133 L (137-145) mmol/L BUN 3 L (7-17) mg/dL Creatinine 0.51 L (0.52-1.04) mg/dL Total Bilirubin 2.2 H (0.2-1.3) mg/dL Thrombosis Risk Factor Assmnt - Choose All That Apply Any of the Below Risk Factors Present?: Yes Each Factor Represents 1 point: Abnormal pulmonary function (COPD), Age 41-60 years Other Risk Factors: No Other congenital or acquired thrombophilia - If yes, enter type in comment: No Thrombosis Risk Factor Assessment Total Risk Factor Score: 2 Thrombosis Risk Factor Assessment Level: Low Risk Assessment and Plan (1) Abdominal pain Current Visit: Yes Status: Acute Code(s): R10.9 - UNSPECIFIED ABDOMINAL PAIN SNOMED Code(s): 13098106 (2) Hypokalemia Current Visit: Yes Status: Acute Code(s): E87.6 - HYPOKALEMIA SNOMED Code(s): 03244380 (3) Intractable nausea and vomiting Current Visit: Yes Status: Acute Code(s): R11.2 - NAUSEA WITH VOMITING, UNSPECIFIED SNOMED Code(s): 414642664 (4) Leukocytosis Current Visit: No Status: Acute Code(s): D72.829 - ELEVATED WHITE BLOOD CELL COUNT, UNSPECIFIED SNOMED Code(s): 467170947 Plan: 1. Intractable nausea and vomiting. Suspect viral gastroenteritis. Zofran, reglan, phenergan prn. Clear liquid diet
[2019-08-03] MEDS: 0.9% NACL WITH KCL 20 MEQ/L 1,000 ML IV SCH ×2 (04:53→15:14)
[2019-08-03] MEDS: ONDANSETRON 4 MG/2 ML VIAL IVP PRN (08:39)
[2019-08-03] MEDS: PANTOPRAZOLE 40 MG/10 ML VIAL IV SCH (08:43)
[2019-08-03] MEDS: PROPRANOLOL 40 MG TAB PO SCH ×2 (08:52→21:30)
--- NOTE | 2019-08-03 09:25 | P.DS ---
<Jaqueline Jung - Last Filed: 08/03/19 09:16> Providers Expected date of discharge: 08/03/19 Hospital Course: Final diagnoses (1) Abdominal pain Current Visit: Yes Status: Acute Code(s): R10.9 - UNSPECIFIED ABDOMINAL PAIN SNOMED Code(s): 64074406 (2) Hypokalemia Current Visit: Yes Status: Acute Code(s): E87.6 - HYPOKALEMIA SNOMED Code(s): 53847656 (3) Intractable nausea and vomiting, suspect viral gastroenteritis, possibly related to cannabis use. Current Visit: Yes Status: Acute Code(s): R11.2 - NAUSEA WITH VOMITING, UNSPECIFIED SNOMED Code(s): 989786645 (4) Leukocytosis Current Visit: No Status: Acute Code(s): D72.829 - ELEVATED WHITE BLOOD CELL COUNT, UNSPECIFIED SNOMED Code(s): 852742062 Hospital course:Sobeida Arrieta is a 43 yo F who presents to the ED complaining of 2 day history of nausea and vomiting. She states that she has felt run down in general with poor appetite and multiple episodes of vomiting. she denies alcohol but does smoke cannabis daily. In the ED she did have leukocytosis and hypokalemia, and persisted to complain of nausea and vomiting despite zofran x2. She is admitted for further management of her nausea and vomiting. Maintained on PPI, Phenergan, Zofran with significant clinical improvement. Patient is being discharged home today in a stable condition with guarded prognosis. EXAM: General: Alert and oriented 3, no acute distress. Lungs: normal respiratory effort, no wheezes or rales CV: Regular rate and rhythm, no murmur. Peripheral pulses 2+ Abdomen: soft, nondistended, no organomegaly. Positive bowel sounds. Neuro: No focal deficits The impression and plan of care has been dictated as directed. : I performed a history and examination of this patient, discussed the same with the dictator. I agree with the dictator's note ,documented as a scribe. Any additional findings or plans will be noted. Patient Condition at Discharge: Stable Plan - Discharge Summary Discharge Rx Participant: No New Discharge Prescriptions: New Ondansetron HCl [Zofran] 8 mg PO TID PRN #20 tablet PRN Reason: Nausea Metoclopramide HCl [Reglan] 5 mg PO TID #30 tablet Continue Pantoprazole Sodium [Protonix] 40 mg PO DAILY PRN PRN Reason: GERD Umeclidinium [place] [Incruse [place]] 1 puff INHALATION RT-DAILY Propranolol [Inderal] 40 mg PO BID Zonisamide [Zonegran] 200 mg PO HS Discharge Medication List Pantoprazole Sodium [Protonix] 40 mg PO DAILY PRN 05/18/19 [History] Propranolol [Inderal] 40 mg PO BID 05/18/19 [History] Umeclidinium [place] [Incruse [place]] 1 puff INHALATION RT-DAILY 05/18/19 [History] Zonisamide [Zonegran] 200 mg PO HS 05/18/19 [History] Ondansetron HCl [Zofran] 8 mg PO TID PRN #20 tablet 08/02/19 [Rx] Metoclopramide HCl [Reglan] 5 mg PO TID #30 tablet 08/04/19 [Rx] Follow up Appointment(s)/Referral(s): Zaira Encinas DO [Primary Care Provider] - 08/10/19 11:00 am (Dr Day Saturday, August 10, 2019 at 11:00 am) Patient Instructions/Handouts: Acute Nausea and Vomiting (DC) Activity/Diet/Wound Care/Special Instructions: Fax final urine culture results to PCP. Drink plenty of fluids. Activity as tolerated, rest as needed. Keep appointments for testing on August 08, and with Dr Robbins on August 09. Keep appointment with Dr Caicedo on Saturday, August 10, 2019 at 11:00 am. Discharge Disposition: HOME SELF-CARE <Odilon Caicedo - Last Filed: 08/04/19 21:14> Providers Date of admission: 08/04/19 09:11 Expected date of discharge: 08/04/19 Attending physician: Odilon Caicedo MD Primary care physician: Zaira Encinas - Discharge Diagnosis(es) (1) Abdominal pain Status: Acute (2) Hypokalemia Status: Acute (3) Intractable nausea and vomiting Status: Acute (4) Leukocytosis Status: Acute Hospital Course: She required scheduled reglan to releive her symptoms. She will continue reglan until she follows up in clinic
[2019-08-03] MEDS: PROMETHAZINE INJ 12.5 MG in SODIUM CHLORIDE 0.9% 50 ML IVPB PRN (13:01)
[2019-08-03] MEDS: METOCLOPRAMIDE 5 MG/ML 2 ML VIAL IVP SCH (19:00)
[2019-08-03] MEDS: ZONISAMIDE 100 MG CAP PO SCH (21:30)
--- NOTE | 2019-08-03 23:53 | P.PN ---
Subjective Progress Note Date: 08/03/19 she tolerated clears last night but vomited after trying orange juice for breakfast and again vomited after eating some lunch. Objective - Vital Signs Vital signs: Vital Signs Temp 98.1 F 08/03/19 20:21 Pulse 76 08/03/19 20:21 Resp 18 08/03/19 20:21 BP 130/80 08/03/19 20:21 Pulse Ox 94 L 08/03/19 20:21 Intake & Output 08/03/19 08/03/19 08/04/19 06:59 18:59 06:59 Output Total 110 Balance -110 Output: Emesis 110 Other: # Voids 1 1 # Emeses 1 - Exam Gen: resting in bed, NAD CV: RRR, no mumur Lungs: clear throughout Abd: soft, nontender - Labs CBC & Chem 7: 08/02/19 09:20 08/02/19 09:20 Labs: Microbiology - Last 24 Hours (Table) 08/02/19 14:30 Urine Culture - Final Urine,Clean Catch 08/02/19 12:30 Blood Culture - Preliminary Blood No Growth after 24 hours Assessment and Plan (1) Abdominal pain Current Visit: Yes Status: Acute Code(s): R10.9 - UNSPECIFIED ABDOMINAL PAIN SNOMED Code(s): 90982330 (2) Hypokalemia Current Visit: Yes Status: Acute Code(s): E87.6 - HYPOKALEMIA SNOMED Code(s): 42783713 (3) Intractable nausea and vomiting Current Visit: Yes Status: Acute Code(s): R11.2 - NAUSEA WITH VOMITING, UNSPECIFIED SNOMED Code(s): 439771275 (4) Leukocytosis Current Visit: No Status: Acute Code(s): D72.829 - ELEVATED WHITE BLOOD CELL COUNT, UNSPECIFIED SNOMED Code(s): 766212875 Plan: 1. Intractable nausea and vomiting. Continue CLD. Schedule reglan 5 mg tid. Continue zofran prn for breakthrough
[2019-08-04] MEDS: 0.9% NACL WITH KCL 20 MEQ/L 1,000 ML IV SCH ×2 (01:26→02:02)
[2019-08-04] MEDS: METOCLOPRAMIDE 5 MG/ML 2 ML VIAL IVP SCH ×2 (02:00→11:15)
[2019-08-04] MEDS ORDERED: PANTOPRAZOLE 40 MG TABLET PO SCH (09:00)
[2019-08-04] MEDS: PROMETHAZINE INJ 12.5 MG in SODIUM CHLORIDE 0.9% 50 ML IVPB PRN (09:02)
[2019-08-04] MEDS: PROPRANOLOL 40 MG TAB PO SCH (09:21)
[2019-08-04 12:58] VITALS: BP 117/76; RESP 18; TEMP 98.1
[2019-08-04 14:27] VITALS: PULSE 56
== END 2019-08-04 13:35 | disposition home or self-care (01) | DRG 392 ==
LOC: EC 08:01 → 6PED 10:43 → OBSVTOIN 08-04 09:11
PROVIDERS: ADMIT Family Medicine; ATTEND Family Medicine
DX: A08.4 Viral intestinal infection, unspecified (principal); K52.1 Toxic gastroenteritis and colitis; D72.829 Elevated white blood cell count, unspecified; E87.6 Hypokalemia; F12.90 Cannabis use, unspecified, uncomplicated; F17.200 Nicotine dependence, unspecified, uncomplicated; G25.0 Essential tremor; J44.9 Chronic obstructive pulmonary disease, unspecified; Z79.899 Other long term (current) drug therapy; Z80.6 Family history of leukemia; Z82.0 Family history of epilepsy and other diseases of the nervous system; Z82.49 Family history of ischemic heart disease and other diseases of the circulatory system; Z87.730 Personal history of (corrected) cleft lip and palate; Z87.11 Personal history of peptic ulcer disease
CPT/HCPCS: 36415; 71045; 74177; 80053; 81001; 82150; 83690; 84132; 84484; 84702; 85025; 85610; 85730; 87040; 87086; 93005; 96361; 96365; 96366; 96375; 96376; 99285

== ENCOUNTER → 2019-08-08 | Outpatient (CLI) | payer OTHER ==
--- NOTE | 2019-08-08 15:43 | NM ---
EXAMINATION TYPE: NM hepatobiliary w CCK DATE OF EXAM: 08/08/2019 COMPARISON: CT abdomen pelvis dated 08/01/2019 HISTORY: Biliary dyskinesia. TECHNIQUE: After the intravenous administration of 4.9 mCi Tc 99m Mebrofenin hepatobiliary scintigrap hy is performed. Immediate images post injection. FINDINGS: There is satisfactory initial accumulation of tracer by the liver. The gallbladder is visualized wit hin 15 minutes. The small bowel activity is noted within 30 minutes. At one hour CCK was administer ed, patient was injected with 1.2 mcg of Kinevac, and gallbladder ejection fraction is calculated at 42 %, in the normal range. Therefore there is no scintigraphic evidence of cystic or common bile scott t obstruction to suggest acute cholecystitis or gallbladder dyskinesia. IMPRESSION: No scintigraphic evidence of acute cholecystitis, chronic cholecystitis nor biliary dyski nesia.
== END | disposition home or self-care (01) ==
LOC: RADNMMAIN 12:58
PROVIDERS: ATTEND Surgery
DX: K82.8 Other specified diseases of gallbladder (principal)
CPT/HCPCS: 78227; A9537; J2805

== ENCOUNTER 2019-08-18 08:07 | Day surgery (SDC) | payer OTHER ==
[2019-08-16 12:24] VITALS: BMI 23.1
[~2019-08-18 08:07] MED LIST changes: +DEXAMETHASONE SOD PHOSPHATE 10 MG/ML 1 ML VIAL IV ONE; +HEPARIN SODIUM,PORCINE 5,000 UNIT/ML 1 ML VIAL SQ ONE; +HYDROmorphone 0.5 MG/0.5 ML SYRINGE IVP PRN
[2019-08-18] MEDS ORDERED: ONDANSETRON 4 MG/2 ML VIAL IVP ONE (08:52)
[2019-08-18] MEDS ORDERED: SCOPOLAMINE 1.5MG/72HR PATCH TRANSDERM ONE (08:56)
--- NOTE | 2019-08-18 09:00 | P.GSHP ---
History of Present Illness H&P Date: 08/18/19 Chief Complaint: Right upper quadrant pain This is a 43-year-old female who has complained 0 quadrant pain. Patient describes indigestion pain and nausea when eating greasy or fried foods. Patient presents today for laparoscopic ostectomy for chronic cholecystitis. Past Medical History Past Medical History: COPD, GERD/Reflux, GI Bleed, Osteoarthritis (OA), Pneumonia, Vascular Disorder Additional Past Medical History / Comment(s): Hx colitis, lower GI bleed, bronchitis Recent gallbladder issues. Left back venous malformation since . Essential tremors, irregular heart beat/bradycardia. 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 Past Anesthesia/Blood Transfusion Reactions: Family History of Problems w/ Anesthesia, Motion Sickness, Postoperative Nausea & Vomiting (PONV) Additional Past Anesthesia/Blood Transfusion Reaction / Comment(s): Mother has PONV also. Past Psychological History: No Psychological Hx Reported Smoking Status: Current every day smoker Past Alcohol Use History: None Reported Additional Past Alcohol Use History / Comment(s): Smokes 1 ppd since 1993. Past Drug Use History: Marijuana Additional Drug Use History / Comment(s): "2 joints per day." Aware no use 24 hrs prior to procedure. - Past Family History Mother Family Medical History: Coronary Artery Disease (CAD), Thyroid Disorder Additional Family Medical History / Comment(s): Irregular heart beat. Son(s) Family Medical History: Cancer Additional Family Medical History / Comment(s): Leukemia X2, currently in remission. Father Family Medical History: Coronary Artery Disease (CAD), Musculoskeletal Disorder, Neurologic Disorder Additional Family Medical History / Comment(s): Father had Parkinson's. He is . Medications and Allergies Home Medications Medication Instructions Recorded Confirmed Type Pantoprazole Sodium [Protonix] 40 mg PO AC-BID 05/18/19 08/18/19 History Propranolol [Inderal] 40 mg PO BID 05/18/19 08/18/19 History Umeclidinium [place] [Incruse 1 puff INHALATION RT-DAILY 05/18/19 08/18/19 History Ellipta] Zonisamide [Zonegran] 200 mg PO HS 05/18/19 08/18/19 History Ondansetron HCl [Zofran] 8 mg PO TID PRN #20 tablet 08/02/19 08/18/19 Rx Fluticasone Propionate 1 puff INHALATION DAILY 08/16/19 08/18/19 History Metoclopramide HCl [Reglan] 5 mg PO TID PRN 08/16/19 08/18/19 History Allergies Allergy/AdvReac Type Severity Reaction Status Date / Time No Known Allergies Allergy Verified 08/16/19 12:25 Surgical - Exam Vital Signs Temp Pulse Resp BP Pulse Ox 96.4 F L 53 L 16 114/56 99 08/18/19 08:30 08/18/19 08:30 08/18/19 08:30 08/18/19 08:30 08/18/19 08:30 - General well developed, well nourished, no distress - Eyes PERRL - ENT normal pinna - Neck no masses - Respiratory normal expansion - Cardiovascular Rhythm: regular - Abdomen Abdomen: soft, non tender Assessment and Plan Assessment: Right upper quadrant pain Chronic cholecystitis We'll perform laparoscopic cholecystectomy.
[2019-08-18] MEDS ORDERED: MIDAZOLAM 2 MG/2 ML VIAL ONE (09:16)
[2019-08-18] MEDS ORDERED: LIDOCAINE 1% INJ 10MG/ML (20 ML MDV) ONE (09:16)
[2019-08-18] MEDS ORDERED: PHENYLEPHRINE-0.9% NACL SYG 1 MG/10 ML SYRINGE ONE (09:16)
[2019-08-18] MEDS ORDERED: ePHEDrine SULFATE/0.9% NACL/PF 50 MG/5 ML SYRINGE IV ONE (09:16)
[2019-08-18] MEDS ORDERED: KETAMINE 10 MG/ML 20 ML VIAL ONE (09:16)
[2019-08-18] MEDS ORDERED: fentaNYL (PF) 50 MCG/ML 2 ML AMP ONE (09:16)
[2019-08-18] MEDS ORDERED: ROCURONIUM BROMIDE 10 MG/ML 10 ML VIAL IV ONE (09:16)
[2019-08-18] MEDS ORDERED: HEPARIN SODIUM,PORCINE 5,000 UNIT/ML 1 ML VIAL ONE (09:16)
[2019-08-18] MEDS ORDERED: GLYCOPYRROLATE 0.2 MG/ML 2 ML VIAL ONE (09:16)
[2019-08-18] MEDS ORDERED: NEOSTIGMINE 1 MG/ML 10 ML VIAL ONE (09:16)
[2019-08-18] MEDS ORDERED: PROPOFOL 10 MG/ML 20 ML VIAL IV ONE (09:16)
[2019-08-18] MEDS ORDERED: SUCCINYLCHOLINE CHLORIDE 100 MG/5 ML SYR IV ONE (09:16)
[2019-08-18] MEDS ORDERED: BUPIVACAINE (PF) 0.25% 30 ML VIAL SQ ONE (09:59)
--- NOTE | 2019-08-18 10:16 | P.OP ---
Date of Procedure: 08/18/19 Preoperative Diagnosis: Cholecystitis Postoperative Diagnosis: Cholecystitis Procedure(s) Performed: Laparoscopic cholecystectomy Anesthesia: CAITLYN Surgeon: Daniel Robbins Estimated Blood Loss (ml): 5 Pathology: other (Gallbladder) Condition: stable Disposition: PACU Description of Procedure: The patient was placed on the operating table. The patient received a general endotracheal tube anesthesia. The patients abdomen was prepped and draped in the usual sterile fashion. Through an infraumbilical stab incision, the fascia of the anterior abdominal wall was grasped with a pair of Kochers and then the Veress needle was placed in the peritoneal cavity. Position of the Veress needle was confirmed with positive drop test. The abdomen was then insufflated. After adequate insufflation, the 10 mm trocar was placed in the peritoneal cavity. Following this the laparoscope was placed in the peritoneal cavity. The patient was placed in the head-up, right side up position and then a 5 mm trocar was placed in the right lateral and right subcostal position under direct visualization. A 8 mm trocar was placed in the epigastric position. The gallbladder was grasped in the fundus and infundibulum. Traction on the gallbladder was placed in the lateral and the cephalad positions. The triangle of Calot was visualized.. The cystic duct was bluntly dissected until the union of the cystic duct and common bile duct was seen. A critical view of safety was achieved. The cystic duct was then divided and sealed with the Harmonic scissors. A PDS Endoloop was then placed throughout the cystic duct stump. The cystic artery divided and sealed with the Harmonic scissors. The gallbladder was then removed from the liver bed using Harmonic scissors. The gallbladder was then extracted through the epigastric port site. Operative field was checked for any bleeding spots and Harmonic scissors was used to coagulate the liver bed. The abdomen was irrigated. The trocars were removed. The skin was closed using interrupted 3-0 Vicryl suture. Dermabond dressing were applied. The patient tolerated the procedure well.
[2019-08-18 10:25] VITALS: TEMP 96.9
[2019-08-18] MEDS ORDERED: KETOROLAC 30 MG/ML 1 ML VIAL IVP ONE (10:30)
[2019-08-18 11:55] VITALS: PULSE 52
[2019-08-18] MEDS ORDERED: HYDROcodone/APAP 5-325MG 1 EACH TAB PO ONE (11:55)
[2019-08-18 12:10] VITALS: BP 123/65; RESP 18
== END 2019-08-18 12:17 | disposition home or self-care (01) ==
LOC: OR 08:07
PROVIDERS: ATTEND Surgery
DX: K81.1 Chronic cholecystitis (principal); J44.9 Chronic obstructive pulmonary disease, unspecified; K21.9 Gastro-esophageal reflux disease without esophagitis; G25.0 Essential tremor; F17.210 Nicotine dependence, cigarettes, uncomplicated; M19.90 Unspecified osteoarthritis, unspecified site; Z87.19 Personal history of other diseases of the digestive system; Z87.01 Personal history of pneumonia (recurrent); Z87.09 Personal history of other diseases of the respiratory system; Z86.79 Personal history of other diseases of the circulatory system; Z98.51 Tubal ligation status; Z87.74 Personal history of (corrected) congenital malformations of heart and circulatory system; Z87.59 Personal history of other complications of pregnancy, childbirth and the puerperium; Z90.79 Acquired absence of other genital organ(s); Z87.730 Personal history of (corrected) cleft lip and palate; Z98.890 Other specified postprocedural states; Z84.89 Family history of other specified conditions; Z82.49 Family history of ischemic heart disease and other diseases of the circulatory system; Z83.49 Family history of other endocrine, nutritional and metabolic diseases; Z80.6 Family history of leukemia; Z82.69 Family history of other diseases of the musculoskeletal system and connective tissue; Z82.0 Family history of epilepsy and other diseases of the nervous system; Z79.899 Other long term (current) drug therapy
CPT/HCPCS: 81025; 88304; 47562; J2250; J1644; J1100; J2710; J0690; J2405; J2001; J3010; J1885; J2370; J0330; J2704; J1170

== ENCOUNTER 2021-08-07 15:55 | Emergency (ER) | payer OTHER ==
--- NOTE | 2021-08-07 17:58 | XR ---
EXAMINATION TYPE: XR cervical spine comp DATE OF EXAM: 08/07/2021 COMPARISON: NONE HISTORY: Neck pain TECHNIQUE: 5 views FINDINGS: Cervical vertebra have normal alignment. Posterior elements are intact. Disc spaces are tushar rly normal. Neural foramina are widely patent. Atlantoaxial facet joint is normal. There are no cervi osei ribs. IMPRESSION: Normal cervical spine exam.
[2021-08-07] MEDS ORDERED: ACET/COD 300 MG/30 MG STARTER PACK 6 TAB BTL PO STA (18:07)
--- NOTE | 2021-08-07 18:08 | ED ---
Neck Injury/Pain HPI - General Chief Complaint: Neck Pain/Injury Stated Complaint: neck pain Time Seen by Provider: 08/07/21 16:27 Source: patient, RN notes reviewed Mode of arrival: ambulatory Limitations: no limitations - History of Present Illness Initial Comments: 45-year-old female presented emergency Department with chief complaint of neck discomfort. Patient states been increasing last few days a week. Patient states she had no falls or trauma but states he just feels sore she feels like she started with spasms that radiate from basilar skull tender shoulder blade. States worse when she turns and twists, no pain at rest. No focal weakness no external paresthesias no other associated complaints. - Related Data Home Medications Medication Instructions Recorded Confirmed Pantoprazole Sodium [Protonix] 40 mg PO AC-BID 05/18/19 08/18/19 Propranolol [Inderal] 40 mg PO BID 05/18/19 08/18/19 Umeclidinium [place] [Incruse 1 puff INHALATION RT-DAILY 05/18/19 08/18/19 Ellipta] Zonisamide [Zonegran] 200 mg PO HS 05/18/19 08/18/19 Fluticasone Propionate 1 puff INHALATION DAILY 08/16/19 08/18/19 Metoclopramide HCl [Reglan] 5 mg PO TID PRN 08/16/19 08/18/19 Previous Rx's Medication Instructions Recorded ondansetron HCL [Zofran] 8 mg PO TID PRN #20 tablet 08/02/19 Docusate [Colace] 100 mg PO BID #20 capsule 08/18/19 HYDROcodone/APAP 5-325MG [Stamps 1 tab PO Q6HR PRN #10 tab 08/18/19 5-325] Cyclobenzaprine [Flexeril] 10 mg PO TID PRN #15 tab 08/07/21 Ibuprofen [Motrin] 600 mg PO Q8HR PRN #20 tab 08/07/21 Allergies Allergy/AdvReac Type Severity Reaction Status Date / Time No Known Allergies Allergy Verified 08/07/21 16:10 Review of Systems ROS Statement: Those systems with pertinent positive or pertinent negative responses have been documented in the HPI. ROS Other: All systems not noted in ROS Statement are negative. Past Medical History Past Medical History: COPD, GERD/Reflux, GI Bleed, Osteoarthritis (OA), Pneumonia, Vascular Disorder Additional Past Medical History / Comment(s): Hx colitis, lower GI bleed, bronchitis Recent gallbladder issues. Left back venous malformation since . Essential tremors, irregular heart beat/bradycardia. 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 Past Anesthesia/Blood Transfusion Reactions: Family History of Problems w/ Anesthesia, Motion Sickness, Postoperative Nausea & Vomiting (PONV) Additional Past Anesthesia/Blood Transfusion Reaction / Comment(s): Mother has PONV also. Past Psychological History: No Psychological Hx Reported Smoking Status: Current every day smoker Past Alcohol Use History: None Reported Past Drug Use History: Marijuana - Past Family History Mother Family Medical History: Coronary Artery Disease (CAD), Thyroid Disorder Additional Family Medical History / Comment(s): Irregular heart beat. Son(s) Family Medical History: Cancer Additional Family Medical History / Comment(s): Leukemia X2, currently in remission. Father Family Medical History: Coronary Artery Disease (CAD), Musculoskeletal Disorder, Neurologic Disorder Additional Family Medical History / Comment(s): Father had Parkinson's. He is . General Exam Limitations: no limitations General appearance: alert, in no apparent distress Head exam: Present: atraumatic, normocephalic, normal inspection Eye exam: Present: normal appearance, PERRL, EOMI. Absent: scleral icterus, conjunctival injection, periorbital swelling ENT exam: Present: normal exam, normal oropharynx, mucous membranes moist, TM's normal bilaterally Neck exam: Present: normal inspection, tenderness (Paraspinal tenderness, trapezius muscles tenderness), full ROM. Absent: meningismus, lymphadenopathy Respiratory exam: Present: normal lung sounds bilaterally. Absent: respiratory distress, wheezes, rales, rhonchi, stridor Cardiovascular Exam: Present: regular rate, normal rhythm, normal heart sounds. Absent: systolic murmur, diastolic murmur, rubs, gallop, clicks Extremities exam: Present: normal inspection, full ROM, normal capillary refill. Absent: tenderness, pedal edema, joint swelling, calf tenderness Neurological exam: Present: alert, oriented X3, CN II-XII intact, reflexes normal. Absent: motor sensory deficit Course Vital Signs 08/07/21 16:11 Temperature 97.8 F Pulse Rate 79 Respiratory 20 Rate Blood Pressure 107/63 O2 Sat by Pulse 97 Oximetry Medical Decision Making - Medical Decision Making x-rays are negative for acute abnormality. Patient symptoms more consistent with muscle spasms, cervical strain she has no red flag symptoms no neurological deficits will be discharged in stable condition return parameters discussed. Disposition Clinical Impression: Strain of neck muscle, Cervical paraspinal muscle spasm Disposition: HOME SELF-CARE Condition: Stable Instructions (If sedation given, give patient instructions): Cervical Strain (ED) Additional Instructions: Please return to the Emergency Department if symptoms worsen or any other concerns. Prescriptions: Cyclobenzaprine [Flexeril] 10 mg PO TID PRN #15 tab PRN Reason: Muscle Spasm Ibuprofen [Motrin] 600 mg PO Q8HR PRN #20 tab PRN Reason: Pain Is patient prescribed a controlled substance at d/c from ED?: No Referrals: Aleksandra Caicedo DO [Primary Care Provider] - 1-2 days Time of Disposition: 18:08
[2021-08-07 18:38] VITALS: BP 121/74; PULSE 81; RESP 17; TEMP 97.9
== END 2021-08-07 18:29 | disposition home or self-care (01) ==
LOC: EC 15:55
DX: S16.1XXA Strain of muscle, fascia and tendon at neck level, initial encounter (principal); J44.9 Chronic obstructive pulmonary disease, unspecified; K21.9 Gastro-esophageal reflux disease without esophagitis; M19.90 Unspecified osteoarthritis, unspecified site; F17.200 Nicotine dependence, unspecified, uncomplicated; F12.90 Cannabis use, unspecified, uncomplicated; Z79.899 Other long term (current) drug therapy; Z79.1 Long term (current) use of non-steroidal anti-inflammatories (NSAID); X58.XXXA Exposure to other specified factors, initial encounter
CPT/HCPCS: 72050; 99283

== ENCOUNTER → 2021-09-11 | Outpatient (CLI) | payer OTHER ==
--- NOTE | 2021-09-12 10:15 | MM ---
Reason for exam: clinical finding. Last mammogram was performed 23 years and 8 months ago. History: Family history of breast cancer in maternal aunt at age 40. Physical Findings: Nurse Summary: 1cm nodule in the left breast at 1 o'clock (nurse mj). [facility] Diagnostic Mammo w CAD ANEUDY Bilateral CC and MLO view(s) were taken. No prior studies available for comparison. The breast tissue is extremely dense which could obscure a lesion on mammography. Benign appearing calcifications in the right breast. ASSESSMENT: Incomplete: need additional imaging evaluation, BI-RAD 0 RECOMMENDATION: Ultrasound of the left breast.
--- NOTE | 2021-09-12 10:19 | USB ---
Reason for exam: additional evaluation requested from abnormal screening. History: Family history of breast cancer in maternal aunt at age 40. US Breast Limited LT Left limited breast ultrasound including focal area of concern, retroareolar and axilla demonstrates a 4mm oval lymph node at the axillary tail. These results were verbally communicated with the patient and result sheet given to the patient on 09/11/21. ASSESSMENT: Benign, BI-RAD 2 RECOMMENDATION: Routine screening mammogram of both breasts in 1 year.
== END | disposition home or self-care (01) ==
LOC: RADMAMWWP 14:28
PROVIDERS: ATTEND Family Medicine
DX: R92.1 Mammographic calcification found on diagnostic imaging of breast (principal); Z80.3 Family history of malignant neoplasm of breast
CPT/HCPCS: 77066

== ENCOUNTER 2024-03-08 14:03 | Emergency (ER) | payer OTHER ==
--- NOTE | 2024-03-08 14:42 | ED ---
Nausea/Vomiting/Diarrhea HPI - General Source: patient, RN notes reviewed Mode of arrival: ambulatory Limitations: no limitations <Ting Gallo - Last Filed: 03/08/24 14:39> - General Source: patient, RN notes reviewed Mode of arrival: ambulatory Limitations: no limitations <Cuco Olvera - Last Filed: 03/08/24 15:15> <Sahil Bran - Last Filed: 03/08/24 17:37> - General Chief complaint: Nausea/Vomiting/Diarrhea Stated complaint: NVD Time Seen by Provider: 03/08/24 14:21 - History of Present Illness Initial comments: Quick Note- this is a 48-year-old female presents emergency department chief complaint of nausea and vomiting over the past 5 days. Endorses chills this morning but denies roque fevers. An episode of dark stools this morning. She has a history of peptic ulcer disease. She denies chest pain, dizziness, chest pressure, lightheadedness. Denies previous surgical abdominal history. (Ting Gallo) 48-year-old female presents emergency department chief complaint of nausea vomiting over the last 5 days. Patient states she did have diarrhea that has resolved continues to have nausea no localized abdominal pain diffuse abdominal pain. Patient denies any sick contacts patient states she has ulcer years ago. Patient denies any chest pain shortness of breath headache dizziness (Cuco Olvera) - Related Data Home Medications Medication Instructions Recorded Confirmed Propranolol [Inderal] 40 mg PO BID 05/18/19 03/08/24 Zonisamide [Zonegran] 200 mg PO HS 05/18/19 03/08/24 Albuterol Sulfate [Albuterol 1 puff PO RT-Q4H PRN 03/08/24 03/08/24 Sulfate Hfa] Butalb/APAP/Caff 50-325-40Mg 1 tab PO Q6H PRN 03/08/24 03/08/24 [Fioricet 50-325-40] Cabergoline 0.5 mg PO TUFR 03/08/24 03/08/24 Gabapentin [Neurontin] 300 mg PO TID 03/08/24 03/08/24 Mometasone/Formoterol [Dulera 100 2 puff INHALATION RT-BID PRN 03/08/24 03/08/24 Mcg-5 Mcg Inhaler] Ondansetron [Zofran] 4 mg PO DAILY PRN 03/08/24 03/08/24 tiZANidine [Zanaflex] 4 mg PO Q8HR PRN 03/08/24 03/08/24 Allergies Allergy/AdvReac Type Severity Reaction Status Date / Time No Known Allergies Allergy Verified 03/08/24 17:16 Review of Systems ROS Other: All systems not noted in ROS Statement are negative. <Ting Gallo - Last Filed: 03/08/24 14:39> ROS Other: All systems not noted in ROS Statement are negative. <Cuco Olvera - Last Filed: 03/08/24 15:15> ROS Other: All systems not noted in ROS Statement are negative. <Sahil Bran - Last Filed: 03/08/24 17:37> ROS Statement: Those systems with pertinent positive or pertinent negative responses have been documented in the HPI. Past Medical History Past Medical History: COPD, GERD/Reflux, GI Bleed, Osteoarthritis (OA), Pneumonia, Vascular Disorder Additional Past Medical History / Comment(s): Hx colitis, lower GI bleed, bronchitis Recent gallbladder issues. Left back venous malformation since . Essential tremors, irregular heart beat/bradycardia. 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 Past Anesthesia/Blood Transfusion Reactions: Family History of Problems w/ Anesthesia, Motion Sickness, Postoperative Nausea & Vomiting (PONV) Additional Past Anesthesia/Blood Transfusion Reaction / Comment(s): Mother has PONV also. Past Psychological History: No Psychological Hx Reported Smoking Status: Current every day smoker Past Alcohol Use History: None Reported Past Drug Use History: Marijuana - Past Family History Mother Family Medical History: Coronary Artery Disease (CAD), Thyroid Disorder Additional Family Medical History / Comment(s): Irregular heart beat. Son(s) Family Medical History: Cancer Additional Family Medical History / Comment(s): Leukemia X2, currently in remission. Father Family Medical History: Coronary Artery Disease (CAD), Musculoskeletal Disorder, Neurologic Disorder Additional Family Medical History / Comment(s): Father had Parkinson's. He is . <Ting Gallo - Last Filed: 03/08/24 14:39> General Exam Limitations: no limitations <Ting Gallo - Last Filed: 03/08/24 14:39> General appearance: alert, in no apparent distress Head exam: Present: atraumatic, normocephalic, normal inspection Eye exam: Present: normal appearance, PERRL, EOMI. Absent: scleral icterus, conjunctival injection, periorbital swelling ENT exam: Present: normal exam, mucous membranes dry, mucous membranes moist Neck exam: Present: normal inspection, full ROM. Absent: tenderness, meningismus, lymphadenopathy Respiratory exam: Present: normal lung sounds bilaterally. Absent: respiratory distress, wheezes, rales, rhonchi, stridor Cardiovascular Exam: Present: regular rate, normal rhythm, normal heart sounds. Absent: systolic murmur, diastolic murmur, rubs, gallop, clicks GI/Abdominal exam: Present: soft, tenderness (Minimal diffuse), normal bowel sounds. Absent: distended, guarding, rebound, rigid <Cuco Olvera - Last Filed: 03/08/24 15:15> - General Exam Comments Initial Comments: Visual Physical Exam Vital signs reviewed General: Well-appearing, nontoxic, no acute distress. Head: Normocephalic, atraumatic Eyes: PERRLA, EOMI ENT: Airway patent Chest: Nonlabored breathing Skin: No visual rash, normal skin tone Neuro: Alert and oriented 3 Musculoskeletal: No gross abnormalities (Ting Gallo) Course Vital Signs 03/08/24 14:36 Temperature 98.3 F Pulse Rate 85 Respiratory 18 Rate Blood Pressure 173/89 O2 Sat by Pulse 94 L Oximetry Medical Decision Making <Ting Gallo - Last Filed: 03/08/24 14:39> - Lab Data Result diagrams: 03/08/24 15:09 03/08/24 15:09 <Sahil Bran - Last Filed: 03/08/24 17:37> - Medical Decision Making I completed the quick note portion of this chart signed Ting Gallo PA-C (Ting Gallo) - Lab Data Lab Results 03/08/24 03/08/24 Range/Units 15:09 15:09 WBC 10.8 H (3.8-10.6) k/uL RBC 5.18 (3.80-5.40) m/uL Hgb 15.8 (11.4-16.0) gm/dL Hct 43.3 (34.0-46.0) % MCV 83.6 (80.0-100.0) fL MCH 30.5 (25.0-35.0) pg MCHC 36.5 (31.0-37.0) g/dL RDW 14.8 (11.5-15.5) % Plt Count 232 (150-450) k/uL MPV 7.6 Neutrophils % 83 % Lymphocytes % 10 % Monocytes % 5 % Eosinophils % 1 % Basophils % 0 % Neutrophils # 8.9 H (1.3-7.7) k/uL Lymphocytes # 1.1 (1.0-4.8) k/uL Monocytes # 0.5 (0-1.0) k/uL Eosinophils # 0.1 (0-0.7) k/uL Basophils # 0.0 (0-0.2) k/uL Manual Slide Review Performed Large Platelets Present Polychromasia Present Hyperchromasia Marked Sodium 129 L (137-145) mmol/L Potassium 3.7 (3.5-5.1) mmol/L Chloride 99 (98-107) mmol/L Carbon Dioxide 20 L (22-30) mmol/L Anion Gap 10 mmol/L BUN 23 H (7-17) mg/dL Creatinine 0.62 (0.52-1.04) mg/dL Est GFR (CKD-EPI)AfAm >90 (>60 ml/min/1.73 sqM) Est GFR (CKD-EPI)NonAf >90 (>60 ml/min/1.73 sqM) Glucose 111 H (74-99) mg/dL Calcium 9.0 (8.4-10.2) mg/dL Total Bilirubin 2.7 H (0.2-1.3) mg/dL AST 34 (14-36) U/L ALT 13 (4-34) U/L Alkaline Phosphatase 87 (38-126) U/L Total Protein 7.4 (6.3-8.2) g/dL Albumin 4.7 (3.5-5.0) g/dL Amylase 53 (30-110) U/L Lipase 49 (23-300) U/L Disposition <Ting Gallo - Last Filed: 03/08/24 14:39> <Cuco Olvera - Last Filed: 03/08/24 15:15> Is patient prescribed a controlled substance at d/c from ED?: No Time of Disposition: 17:25 <Sahil Bran - Last Filed: 03/08/24 17:37> Clinical Impression: Dehydration, Gastroenteritis, Intractable nausea and vomiting Disposition: HOME SELF-CARE Condition: Good Instructions (If sedation given, give patient instructions): Acute Nausea and Vomiting (ED) Referrals: None,Stated [Primary Care Provider] - 1-2 days
[2024-03-08 15:27] LABS: ALT 13 U/L (4-34); African American GFR (CKD) >90 (>60 ml/min/1.73 sqM); Amylase 53 U/L (30-110); Anion Gap 10 mmol/L; Blood Urea Nitrogen 23 mg/dL (7-17); Carbon Dioxide 20 mmol/L (22-30); Chloride 99 mmol/L (98-107); Glucose 111 mg/dL (74-99); Lipase 49 U/L (23-300); Non-African American GFR(CKD) >90 (>60 ml/min/1.73 sqM); Sodium 129 mmol/L (137-145)
[2024-03-08 15:30] LABS: Albumin 4.7 g/dL (3.5-5.0); Potassium 3.7 mmol/L (3.5-5.1); Total Bilirubin 2.7 mg/dL (0.2-1.3); Total Protein 7.4 g/dL (6.3-8.2)
[2024-03-08 15:31] LABS: AST 34 U/L (14-36); Alkaline Phosphatase 87 U/L (38-126)
[2024-03-08] MEDS: SODIUM CHLORIDE 0.9% 1,000 ML IV ONE (16:09)
[2024-03-08] MEDS: SODIUM CHLORIDE 0.9% 500 ML 500 ML IV ONE (16:09)
[2024-03-08] MEDS: KETOROLAC 15 MG/ML 1 ML VIAL IVP STA (16:11)
[2024-03-08] MEDS: METOCLOPRAMIDE 5 MG/ML 2 ML VIAL IVP STA (16:12)
[2024-03-08] MEDS: diphenhydrAMINE 50 MG/ML 1 ML VIAL IVP STA (16:13)
[2024-03-08 16:17] LABS: Basophils % (A) 0 %; Eosinophils # (A) 0.1 k/uL (0-0.7); Eosinophils % (A) 1 %; HCT 43.3 % (34.0-46.0); HGB 15.8 gm/dL (11.4-16.0); Hyperchromasia Marked; Lymphocytes # (A) 1.1 k/uL (1.0-4.8); Lymphocytes % (A) 10 %; MCH 30.5 pg (25.0-35.0); MCHC 36.5 g/dL (31.0-37.0); MCV 83.6 fL (80.0-100.0); Mean Platelet Volume 7.6; Monocytes # (A) 0.5 k/uL (0-1.0); Monocytes % (A) 5 %; Neutrophils # (A) 8.9 k/uL (1.3-7.7); Neutrophils % (A) 83 %; Platelet Count 232 k/uL (150-450); RBC 5.18 m/uL (3.80-5.40); RDW 14.8 % (11.5-15.5); WBC 10.8 k/uL (3.8-10.6)
[2024-03-08 16:46] LABS: Large Platelets Present; Polychromasia Present
[2024-03-08 18:18] VITALS: RESP 16; TEMP 98.7
[2024-03-08] MEDS: ONDANSETRON 4 MG ODT STARTER PACK 2 TAB BTL PO STA (18:23)
[2024-03-08] MEDS: PROCHLORPERAZINE INJ 10 MG/2 ML VIAL IVP STA (18:23)
[2024-03-08 18:25] VITALS: BP 162/95; PULSE 71
== END 2024-03-08 18:39 | disposition home or self-care (01) ==
LOC: EC 14:03
DX: K52.9 Noninfective gastroenteritis and colitis, unspecified (principal); E86.0 Dehydration; F17.200 Nicotine dependence, unspecified, uncomplicated; F12.90 Cannabis use, unspecified, uncomplicated
CPT/HCPCS: 36415; 80053; 82150; 83690; 85025; 99284; 96374; 96375; 96361; J1200; J0780; J2765; J1885; S0119

== ENCOUNTER → 2024-05-23 | Outpatient (CLI) | payer OTHER ==
[2024-05-23 16:12] LABS: Basophils # (A) 0.05 X 10*3/uL (0.00-0.10); Basophils % (A) 0.9 %; Eosinophils # (A) 0.11 X 10*3/uL (0.04-0.35); HCT 40.1 % (37.2-46.3); HGB 13.9 g/dL (12.0-15.0); Lymphocytes # (A) 1.52 X 10*3/uL (0.90-5.00); Lymphocytes % (A) 27.6 %; MCH 31.4 pg (27.0-32.0); MCHC 34.7 g/dL (32.0-37.0); MCV 90.5 FL (80.0-97.0); Mean Platelet Volume 9.7 FL (9.5-12.2); Monocytes # (A) 0.32 X 10*3/uL (0.20-1.00); Monocytes % (A) 5.8 %; NRBC Per 100 WBC 0 X 10*3/uL (0.00-0.01); Neutrophils # (A) 3.48 X 10*3/uL (1.80-7.70); Neutrophils % (A) 63.3 %; Platelet Count 173 X 10*3/uL (140-440); RBC 4.43 X 10*6/uL (4.10-5.20); RDW 15.2 % (11.5-14.5)
[2024-05-23 16:35] LABS: ALT 15 U/L (8-44); AST 19 U/L (13-35); Albumin 4.3 g/dL (3.8-4.9); Albumin/Globulin Ratio 2.05 Ratio (1.60-3.17); BUN/Creat Ratio 20.75 Ratio (12.00-20.00); Blood Urea Nitrogen 16.6 mg/dL (9.0-27.0); Calcium 9.2 mg/dL (8.7-10.3); Carbon Dioxide 27.3 mmol/L (21.6-31.8); Chloride 106 mmol/L (96-109); Globulin 2.1 g/dL (1.6-3.3); Glucose 88 mg/dL (70-110); Potassium 3.9 mmol/L (3.5-5.5); Sodium 141 mmol/L (135-145); Total Bilirubin 0.8 mg/dL (0.3-1.2); Total Protein 6.4 g/dL (6.2-8.2)
[2024-05-23 16:36] LABS: Alkaline Phosphatase 68 U/L (41-126)
== END | disposition home or self-care (01) ==
LOC: LABWHC1 11:24
PROVIDERS: ATTEND Nurse Practitioner Family
DX: R11.2 Nausea with vomiting, unspecified (principal)
CPT/HCPCS: 36415; 80053; 83516; 85025

== ENCOUNTER 2024-07-13 13:12 | Emergency (ER) | payer OTHER ==
[2024-07-13] MEDS: KETOROLAC 15 MG/ML 1 ML VIAL IM STA (14:29)
[2024-07-13] MEDS: MORPHINE SULFATE 4 MG/ML SYRINGE IM STA (14:29)
[2024-07-13] MEDS: LIDOCAINE 4% PATCH TOPICAL ONE (14:30)
[2024-07-13 14:40] VITALS: RESP 18; TEMP 98
--- NOTE | 2024-07-13 14:47 | XR ---
EXAMINATION TYPE: XR ribs RT w pa chest xray DATE OF EXAM: 07/13/2024 COMPARISON: NONE TECHNIQUE: PA view of the chest and 4 views of the right ribs submitted. HISTORY: Right upper rib pain FINDINGS: The lungs are clear and there is no pneumothorax, pleural effusion, or focal pneumonia. Heart size normal and no overt failure. Osseous structures intact. A chronic deformity of the right sixth rib co mpatible with remote trauma. Slight curvature of the spine. IMPRESSION: 1. No acute process. [facility], , 07/13/2024 2:44 PM
--- NOTE | 2024-07-13 14:54 | ED ---
Recheck HPI - General Chief Complaint: Recheck/Abnormal Lab/Rx Stated Complaint: SOB/Chest pain Time Seen by Provider: 07/13/24 13:58 Source: patient, RN notes reviewed Mode of arrival: ambulatory Limitations: no limitations - History of Present Illness Initial Comments: This is a 48-year-old female who presents to the emergency department for right sided rib cage pain. States that a couple of days ago she went to reach for something in the car and had gone to lean over a seat. She felt a crunching noise over the right upper rib cage followed by pain. States that she has had pain ever since, especially if she coughs, breathes, or sneezes. Not taking anything for the pain. - Related Data Home Medications Medication Instructions Recorded Confirmed Propranolol [Inderal] 40 mg PO BID 05/18/19 03/08/24 Zonisamide [Zonegran] 200 mg PO HS 05/18/19 03/08/24 Albuterol Sulfate [Albuterol 1 puff PO RT-Q4H PRN 03/08/24 03/08/24 Sulfate Hfa] Butalb/APAP/Caff 50-325-40Mg 1 tab PO Q6H PRN 03/08/24 03/08/24 [Fioricet 50-325-40] Cabergoline 0.5 mg PO TUFR 03/08/24 03/08/24 Gabapentin [Neurontin] 300 mg PO TID 03/08/24 03/08/24 Mometasone/Formoterol [Dulera 100 2 puff INHALATION RT-BID PRN 03/08/24 03/08/24 Mcg-5 Mcg Inhaler] Ondansetron [Zofran] 4 mg PO DAILY PRN 03/08/24 03/08/24 tiZANidine [Zanaflex] 4 mg PO Q8HR PRN 03/08/24 03/08/24 Previous Rx's Medication Instructions Recorded Ibuprofen [Motrin] 800 mg PO Q8H PRN #30 tab 07/13/24 Lidocaine 5% Patch [Lidoderm 5% 1 patch TOPICAL DAILY PRN #30 patch 07/13/24 Patch] methocarbamoL [Robaxin-750] 1,500 mg PO TID PRN #30 tab 07/13/24 Allergies Allergy/AdvReac Type Severity Reaction Status Date / Time No Known Allergies Allergy Verified 07/13/24 13:48 Review of Systems ROS Statement: Those systems with pertinent positive or pertinent negative responses have been documented in the HPI. ROS Other: All systems not noted in ROS Statement are negative. Past Medical History Past Medical History: COPD, GERD/Reflux, GI Bleed, Osteoarthritis (OA), Pneumonia, Vascular Disorder Additional Past Medical History / Comment(s): Hx colitis, lower GI bleed, bronchitis Recent gallbladder issues. Left back venous malformation since . Essential tremors, irregular heart beat/bradycardia. 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 Past Anesthesia/Blood Transfusion Reactions: Family History of Problems w/ Anesthesia, Motion Sickness, Postoperative Nausea & Vomiting (PONV) Additional Past Anesthesia/Blood Transfusion Reaction / Comment(s): Mother has PONV also. Past Psychological History: No Psychological Hx Reported Smoking Status: Current every day smoker Past Alcohol Use History: None Reported Past Drug Use History: Marijuana - Past Family History Mother Family Medical History: Coronary Artery Disease (CAD), Thyroid Disorder Additional Family Medical History / Comment(s): Irregular heart beat. Son(s) Family Medical History: Cancer Additional Family Medical History / Comment(s): Leukemia X2, currently in remission. Father Family Medical History: Coronary Artery Disease (CAD), Musculoskeletal Disorder, Neurologic Disorder Additional Family Medical History / Comment(s): Father had Parkinson's. He is . General Exam Limitations: no limitations General appearance: alert, in no apparent distress Head exam: Present: atraumatic, normocephalic, normal inspection Respiratory exam: Present: normal lung sounds bilaterally, chest wall tenderness (Tenderness over the right upper chest). Absent: respiratory distress, wheezes, rales, rhonchi, stridor Cardiovascular Exam: Present: regular rate, normal rhythm, normal heart sounds. Absent: systolic murmur, diastolic murmur, rubs, gallop, clicks Neurological exam: Present: alert, oriented X3, CN II-XII intact Psychiatric exam: Present: normal affect, normal mood Skin exam: Present: warm, dry, intact, normal color. Absent: rash Course Vital Signs 07/13/24 07/13/24 07/13/24 13:42 14:20 15:26 Temperature 98.3 F 98 F 98 F Pulse Rate 63 61 65 Respiratory 22 18 18 Rate Blood Pressure 125/84 144/80 131/84 O2 Sat by Pulse 95 98 98 Oximetry Medical Decision Making - Medical Decision Making This is a 48-year-old female who presents to the emergency department for pain over the right upper rib cage Was pt. sent in by a medical professional or institution? @ -No Did you speak to anyone other than the patient for history? @ -No Did you review nursing and triage notes? @ -Yes, and I agree, it is accurate with regards to the patient's symptoms. Were old charts reviewed? @ -No Differential Diagnosis? @ -Rib fracture, rib contusion, pneumothorax, this is not meant to be an all- inclusive list. EKG interpreted by me (3pts min.)? @ -EKG interpreted by me demonstrating the following: Sinus bradycardia. Ventricular rate 57 bpm, ME interval 159 ms, QRS duration 86 ms, QTc 389 ms. X-rays interpreted by me (1pt min.)? @ -Chest x-ray obtained, my interpretation identifies no localized consolidations or infiltrates. CT interpreted by me (1pt min.)? @ -Not obtained U/S interpreted by me (1pt. min.)? @ -Not obtained What testing was considered but not performed? (CT, X-rays, U/S, labs)? Why? @ -None What meds were considered but not given? Why? @ -None Did you discuss the management of the patient with other professionals? @ -No Did you reconcile home meds? @ -No Was smoking cessation discussed for >3mins.? @ -No Was critical care preformed (if so, how long)? @ -No Were there social determinants of health that impacted care today? How? (Homelessness, low income, unemployed, alcoholism, drug addiction, transportation, low edu. Level, literacy, decrease access to med. care, [place] [facility], rehab)? @ -No Was there de-escalation of care discussed even if they declined? (Discuss DNR or withdrawal of care, Hospice)? @ -No What co-morbidities impacted this encounter? (DM, HTN, Smoking, COPD, CAD, Cancer, CVA, Hep., AIDS, mental health diagnosis, sleep apnea, morbid obesity)? @ -Osteoarthritis Was patient admitted / discharged? @ -Discharged. X-ray of the chest and right rib cage obtained revealing no acute process. Symptoms likely related to a rib cage contusion. Pain was managed in the emergency department. Prescription for ibuprofen, Robaxin, and lidocaine patches provided. We discussed being sure she takes several deep breaths an hour despite the pain to reduce the risk of developing a secondary pneumonia. Patient discharged home in stable condition and advised to follow-up with her PCP. Case discussed with ED attending Dr. Encinas. Return precautions reviewed in depth, the patient is instructed to return to the emergency department with any new, worsening, or concerning symptoms. Patient verbalized understanding. Undiagnosed new problem with uncertain prognosis? @ -None Drug Therapy requiring intensive monitoring for toxicity (Heparin, Nitro, Insulin, Cardizem)? @ -None Were any procedures done? @ -None Diagnosis/symptom? @ -Right rib cage contusion Acute, or Chronic, or Acute on Chronic? @ -Acute Uncomplicated (without systemic symptoms) or Complicated (systemic symptoms)? @ -Uncomplicated Side effects of treatment? @ -None Exacerbation, Progression, or Severe Exacerbation] @ -Not applicable Poses a threat to life or bodily function? @ -No - Radiology Data Radiology results: report reviewed, image reviewed Disposition Clinical Impression: Contusion of rib on right side Disposition: HOME SELF-CARE Instructions (If sedation given, give patient instructions): Rib Contusion (ED) Additional Instructions: Return to the emergency department with any new, worsening, or concerning symptoms. Alternate with ibuprofen and Tylenol as needed for pain relief. Take the Robaxin as 1 to 2 tablets up to 3-4 times daily. You can also apply the lidocaine patches daily. Follow up with your primary care provider in 1-2 days. Prescriptions: Lidocaine 5% Patch [Lidoderm 5% Patch] 1 patch TOPICAL DAILY PRN #30 patch PRN Reason: Pain Ibuprofen [Motrin] 800 mg PO Q8H PRN #30 tab PRN Reason: Pain methocarbamoL [Robaxin-750] 1,500 mg PO TID PRN #30 tab PRN Reason: Pain Is patient prescribed a controlled substance at d/c from ED?: No Referrals: Amos Rosales DO [Primary Care Provider] - 1-2 days Time of Disposition: 15:13
[2024-07-13] MEDS: IBUPROFEN 600 MG STARTER PACK 4 TAB BTL PO STA (15:24)
[2024-07-13] MEDS: ACET/COD 300 MG/30 MG STARTER PACK 6 TAB BTL PO STA (15:24)
[2024-07-13 15:28] VITALS: BP 131/84; PULSE 65
== END 2024-07-13 15:32 | disposition home or self-care (01) ==
LOC: EC 13:12
CPT/HCPCS: 96372; 99285

== ENCOUNTER → 2024-08-05 | Outpatient (CLI) | payer OTHER ==
--- NOTE | 2024-08-05 16:32 | XR ---
EXAMINATION TYPE: XR KUB DATE OF EXAM: 08/05/2024 4:10 PM COMPARISON: none CLINICAL INDICATION: Female, 48 years old with history of R14.0 ABDOMINAL DISTENSION (GASEOUS) R19.7 R10.84; [facility] TECHNIQUE: One radiographic view of the abdomen was obtained. FINDINGS: The bowel gas pattern is nonspecific without dilated loops of small or large bowel. . Fecal material and gas are demonstrated throughout the colon and rectum. There is no evidence for organomegaly or pneumoperitoneum. The osseous structures are intact. No ab normal calcifications are present. IMPRESSION: Nonspecific bowel gas pattern without radiographic evidence for acute process. [facility], , 08/05/2024 4:30 PM
== END | disposition home or self-care (01) ==
LOC: RADXRMAIN 15:54
PROVIDERS: ATTEND Internal Medicine
DX: R14.0 Abdominal distension (gaseous) (principal); R19.7 Diarrhea, unspecified; R10.84 Generalized abdominal pain
CPT/HCPCS: 74018